=== PATIENT | female | born 1935 | race Caucasian/White ===

== ENCOUNTER 2017-03-07 19:57 | Inpatient (IN) | payer OTHER, MEDICAID ==
[~2017-03-07] VITALS: Ht 167.6 cm; Wt 74.4 kg
[~2017-03-07 19:57] MED LIST: ASPIRIN ADULT L81 M1 PO; BENEFIBER1 CTB PO; DIGITEK0.125 MG PO; FOSAMAX70 MG PO; FUROSEMIDE40 MG PO; KLOR-CON 88 MEQ PO; LIPITOR80 MG PO; METFORMIN500 MG PO; METOPROLOL TART25 MG PO; MULTIVITAMIN1 TA1 PO; OYSCO PO; RANITIDINE150 M1 PO; STOOL SOFTENER250 MG PO; SYNTHROID PO; VASOTEC2.5 M1 PO; XARELTO15 MG PO; [UNRECOGNIZED DRUG - OTHER] PO
[2017-03-07 20:17] VITALS: BP 155/81
--- NOTE | 2017-03-07 23:16 | NUR ---
PT TAKEN TO BED 8
--- NOTE | 2017-03-07 23:20 | NUR ---
BIB BY HER CAREGIVER WITH COMPLAINT OF HIGH BP, STARTED TODAY IN THE AFTERNOON. DENIES PAIN AT THIS TIME. ERMD AWARE
--- NOTE | 2017-03-07 23:27 | NUR ---
Dr. Wheeler evaluating patient at bedside.
--- NOTE | 2017-03-07 23:39 | NUR ---
PT TAKEN TO CT
--- NOTE | 2017-03-08 00:02 | NUR ---
PT RETURN TO BED 8
[2017-03-08] MEDS ORDERED: PIPERACILLIN/TAZOBACTAM 3.375 GM in DEXTROSE 5% 50 ML IV ONE (00:50)
[2017-03-08] MEDS ORDERED: VANCOMYCIN 1,000 MG in DEXTROSE 5% 250 ML IV ONE (00:50)
[2017-03-08] MEDS ORDERED: NACL 0.9% 1,000 ML IV ONE (00:50)
--- NOTE | 2017-03-08 00:50 | NUR ---
PT WENT TO THE RESTROOM ASSISTED WITH HER CAREGIVER.
[2017-03-08] MEDS ORDERED: PIPERACILLIN/TAZOBACTAM 3.375 GM VIAL IV ONE (01:13)
[2017-03-08] MEDS ORDERED: VANCOMYCIN 1,000 MG VIAL ONE (01:14)
--- NOTE | 2017-03-08 01:15 | NUR ---
PT BACK TO BED FROM RESTROOM WITH HER CAREGIVER.
--- NOTE | 2017-03-08 02:04 | NUR ---
Note saeed in EDM - 03/08/17 at 0302 by SAÚL # 14 FR Urinary catheter inserted utilizing sterile technique. Immediate return of 60 ml CLOUDY urine noted. Urine sample collected and sent to lab. Pt tolerated procedure .
[2017-03-08] MEDS ORDERED: ASPIRIN 81 MG TAB.CHEW PO ONE (02:40)
--- NOTE | 2017-03-08 02:54 | NUR ---
CALLING TELE UNIT TO GIVE REPORT. NURSE WILL CALL BACK.
--- NOTE | 2017-03-08 02:55 | NUR ---
Patient will be admitted to care of DR. JACOBSEN. Admited to TELE. Will go to room 119B. Belongings list completed.
[2017-03-08] MEDS ORDERED: KLOR-CON M1010 MEQ PO (03:10)
[2017-03-08] MEDS ORDERED: EAR WAX DROPS 115 ML OT (03:10)
--- NOTE | 2017-03-08 03:17 | NUR ---
CALLED TELE AGAIN TO GIVE REPORT. ENDER RENTERIA SAID NURSE WILL CALL BACK.
[2017-03-08] MEDS ORDERED: ACETAMINOPHEN325 M2 PO (03:18)
--- NOTE | 2017-03-08 03:19 | NUR ---
# 16 FR Solitario catheter with utilizing sterile technique. Immediate return of 100 ml CLOUDY urine noted. Bedside drainage bag placed below level of bladder. Urine sample collected and sent to lab. Pt tolerated procedure WELL.
[2017-03-08] MEDS ORDERED: GOOD NEIGHBOR P10 M1 RC (03:20)
[2017-03-08] MEDS ORDERED: NEIGHBOR RC (03:21)
[2017-03-08] MEDS ORDERED: LORazepam 2 MG/ML VIAL IVP PRN (03:30)
[2017-03-08] MEDS ORDERED: HYDROcodone/APAP 5/325 MG 1 TAB TAB PO PRN (03:30)
[2017-03-08] MEDS ORDERED: MORPHINE SULFATE 2 MG/ML SYR IVP PRN (03:30)
[2017-03-08] MEDS ORDERED: ONDANSETRON 4 MG/2 ML VIAL IVP PRN (03:30)
--- NOTE | 2017-03-08 03:30 | NUR ---
REPORT GIVEN TO DEANNE CARRION. TRANSFERRED TO FLOOR, VIA GURNEY, ON GUARDED CONDITION ACCOMPANIED BY 2 RNS.
[2017-03-08 03:35] VITALS: BP 141/64
--- NOTE | 2017-03-08 03:35 | NUR ---
RECEIVED REPORT FROM ED RN FOR CONTINUITY OF CARE. 81 Y.O. FEMALE ADMITTED TO TELE UNIT. DISCUSSED PLAN OF CARE WITH PATIENTS CAREGIVER AT BEDSIDE. SHIFT ASSESSMENT DONE, VS TAKEN, STABLE. NO S/S OF RESPIRATORY DISTRESS NOTED ON ROOM AIR. NO S/S OF PAIN NOTED. PATIENT IS ASLEEP, UNABLE TO VERBALIZE UNDERSTANDING AT THIS TIME. IV TO RT AC PATENT AND INFUSING FLUIDS WELL. SKIN INTACT. SAFETY/ FALL PRECAUTIONS ENFORCED. CALL LIGHT WITHIN REACH. WILL CONTINUE TO MONITOR.
[2017-03-08] MEDS ORDERED: NITROGLYCERIN 0.4 MG TAB SL PRN (03:40)
[2017-03-08] MEDS: NACL 0.9% 1,000 ML IV SCH ×2 (04:13→14:14)
--- NOTE | 2017-03-08 05:30 | NUR ---
PT IS SLEEPING. NO S/S OF DISTRESS OR DISCOMFORT NOTED. SPOKE TO REGARDING ORDER FOR BLOOD SUGAR MONITORING AND INSULIN PER SLIDING SCALE. WILL FOLLOW OUT ORDERS GIVEN. WILL CONTINUE TO MONITOR.
--- NOTE | 2017-03-08 06:20 | NUR ---
PT IS SLEEPING. NO S/S OF DISTRESS NOTED. BLOOD SUGAR TAKEN, 130. SCDS APPLIED. WILL CONTINUE TO MONITOR.
[2017-03-08] MEDS ORDERED: hePARIN / DEXT 5% PREMIX 250 ML IV SCH ×2 (06:30→09:10)
[2017-03-08] MEDS ORDERED: HEPARIN PER PHARMACY MC PRN (06:30)
--- NOTE | 2017-03-08 07:27 | NUR ---
ENDORSED PATIENT TO DAY RN FOR CONTINUITY OF CARE, PATIENT IS IN STABLE CONDITION.
--- NOTE | 2017-03-08 07:28 | NUR ---
RECEIVED REPORT FROM THE SERVICE DIRECTOR NURSE AT BEDSIDE FOR CONTINUITY OF CARE. PT IS SOUND ASLEEP. NOTED THE R AC 20G NS AT 30ML /HR. NO SIGNS OF DISTRESS. WILL BE BE BACK TO ASSESS PT.
[2017-03-08] MEDS ORDERED: BISACODYL 10 MG SUPP RC PRN (07:30)
[2017-03-08] MEDS ORDERED: BLOOD GLUCOSE MONITORING 1 DEV DEV FS SCH (07:30)
[2017-03-08] MEDS ORDERED: DEXTROSE 50% 50 ML SYR IVP PRN (07:40)
[2017-03-08] MEDS ORDERED: INSULIN LISPRO SLIDING SCALE 100 UNITS/ML VIAL SUBQ PRN (07:40)
[2017-03-08 08:00] VITALS: BP 122/63
[2017-03-08] MEDS ORDERED: ACETAMINOPHEN 325 MG TAB PO PRN (08:00)
--- NOTE | 2017-03-08 08:00 | NUR ---
PATIENT HAS BEEN SCREENED AND CATEGORIZED MODERATE NUTRITION RISK. PATIENT WILL BE SEEN WITHIN 3-5 DAYS OF ADMISSION. 03/10/17-03/12/[address]
--- NOTE | 2017-03-08 08:20 | NUR ---
HAD TO WAKE UP PT TO DO V/S. PT WAS COOPERATIVE. NOTED THE IV, PATENT, DRY AND INTACT. PT HAS A VICK CATH. 50ML OF CLEAR, YELLOW URINE IN BAG. DENIES PAIN. NO COMPLAINTS. JUST WANTS TO GO BACK TO BED. WILL CONTINUE TO MONITOR PT.
[2017-03-08] MEDS ORDERED: DIGOXIN PO SCH (09:00)
[2017-03-08] MEDS ORDERED: SODIUM PHOSPHATE 118 ML ENEM RC PRN (09:00)
[2017-03-08] MEDS ORDERED: CARBAMIDE PEROXIDE 6.5% OT 15 ML BTL OT SCH (09:00)
[2017-03-08] MEDS ORDERED: NON-FORMULARY ITEM (Levothyroxine Sodium (Synthroid) 1 TAB) PO SCH (09:00)
[2017-03-08] MEDS ORDERED: RANITIDINE HCL PO SCH (09:00)
[2017-03-08] MEDS ORDERED: CALCIUM PO SCH (09:00)
[2017-03-08] MEDS ORDERED: METOPROLOL 25 MG TAB PO SCH (09:00)
[2017-03-08] MEDS ORDERED: LISINOPRIL 10 MG TAB PO SCH (09:00)
[2017-03-08] MEDS ORDERED: CHOLECALCIFEROL PO SCH (09:00)
[2017-03-08] MEDS ORDERED: WHEAT DEXTRIN PO SCH (09:00)
[2017-03-08] MEDS ORDERED: RIVAROXABAN 15 MG TAB PO SCH (09:00)
--- NOTE | 2017-03-08 09:01 | NUR ---
RADIO TALK SHOW HOST IS HERE TO DO THE DOPPLER. WILL WAIT TO GIVE MEDS.
[2017-03-08] MEDS: PSYLLIUM 12.2 GM/PKT PO SCH (09:17)
[2017-03-08] MEDS: ENALAPRIL 2.5 MG TAB PO SCH (09:17)
[2017-03-08] MEDS: metFORMIN 500 MG TAB PO SCH ×2 (09:18→17:07)
[2017-03-08] MEDS: CALCIUM CARB/VIT-D 500 MG/200 IU 1 TAB PO SCH ×2 (09:18→21:18)
[2017-03-08] MEDS: FAMOTIDINE 20 MG TAB PO SCH (09:19)
[2017-03-08] MEDS: MULTIVITAMIN 1 TAB PO SCH (09:19)
[2017-03-08] MEDS: FUROSEMIDE 40 MG TAB PO SCH ×2 (09:19→17:06)
[2017-03-08] MEDS: DIGOXIN 0.125 MG TAB PO SCH (09:20)
[2017-03-08] MEDS: DOCUSATE SODIUM 100 MG GELCAP PO SCH ×2 (09:20→21:18)
[2017-03-08] MEDS ORDERED: ALBUTEROL SULFATE/IPRATROPIU 3 ML SOL IH PRN (09:35)
[2017-03-08] MEDS ORDERED: POTASSIUM CHLORIDE 10 MEQ TABER PO SCH (09:37)
[2017-03-08] MEDS ORDERED: MAG SULF 2000 MG/WATER PREMIX 100 ML IV SCH (09:40)
--- NOTE | 2017-03-08 10:30 | NUR ---
JOSE STARTED ANOTHER IV ON TH R HAND 22G FOR THE HEPARIN DRIP. PT TOLERATED WELL. ADMINISTERED IV PUSH 4400U AND STARTED THE CONTINUOUS DRIP AT 8.9ML/HR. PT IS TOLERATING WELL. WILL CONTINUE TO MONITOR PT.
--- NOTE | 2017-03-08 11:19 | NUR ---
SURGICAL TRAINING SPECIALIST IS HERE FOR THE ECHO. PT IS TOLERATING WELL.
[2017-03-08] MEDS: BLOOD GLUCOSE MONITORING 1 DEV DEV FS SCH ×3 (11:48→21:20)
[2017-03-08] MEDS: INSULIN LISPRO SLIDING SCALE 100 UNITS/ML VIAL SUBQ PRN ×3 (11:50→21:21)
--- NOTE | 2017-03-08 12:08 | NUR ---
RADIOLOGIST STILL IN ROOM. NEED TO DO A BUBBLE STUDY. WAITING FOR JOSE, CHARGE NURSE TO ASSIST. WILL CONTINUE TO MONITOR PT.
[2017-03-08 13:02] VITALS: BP 110/50
[2017-03-08] MEDS: PIPER/TAZO 3.375GM/D5W PREMIX 50 ML IV SCH ×2 (13:05→21:19)
--- NOTE | 2017-03-08 13:28 | NUR ---
PT IS NOW SITTING UP IN BED AND COLORING. THE FACILITY DIRECTOR IS AT BEDSIDE. NO SIGNS OF DISTRESS. WILL CONTINUE TO MONITOR PT.
--- NOTE | 2017-03-08 15:17 | NUR ---
PT IS SLEEPING. INSOLE RASPER AT BEDSIDE. NO SIGNS OF DISTRESS. DR. GILLILAND HAD D/C THE HEPARIN. DISCONTINUED. WILL CONTINUE TO MONITOR PT.
[2017-03-08 16:00] VITALS: BP 104/71
[2017-03-08] MEDS: CARVEDILOL 3.125 MG TAB PO SCH (17:06)
--- NOTE | 2017-03-08 17:30 | NUR ---
DECORATING INSPECTOR HERE. DOING HER NAILS. NO SIGNS OF DISTRESS. WILL CONTINUE TO MONITOR PT.
--- NOTE | 2017-03-08 19:19 | NUR ---
ENDORSED PT TO THE MUSHROOM CULTIVATOR NURSE AT BEDSIDE FOR CONTINUITY OF CARE. PT IS IN STABLE CONDITION.
--- NOTE | 2017-03-08 19:30 | NUR ---
RECEIVED FROM AM RN IN BED AWAKE AND ALERT. VERBALIZES SIMPLE NEEDS. NO SOB. DENIES PAIN AT THIS TIME. BED ALARM ON. CALL LIGHT WITH IN REACH. HX. DEMENTIA. DX. OF AMS, CYSTITIS AND ELEVATED TROPONIN. CALL LIGHT WITH IN REACH. IVF SITES PATENT AND NO INFILTRATION NOTED. NEEDS WILL BE ANTICIPATED AND WILL BE MET. CARE PLANS FOR THE NIGHT DISCUSSED WITH HER.
[2017-03-08 20:00] VITALS: BP 111/68
[2017-03-08] MEDS: ATORVASTATIN 20 MG TAB PO SCH (21:18)
--- NOTE | 2017-03-08 23:04 | NUR ---
SLEEPING AT THIS TIME. BED ALARM ON . TELEMETRY MONITORING.
[2017-03-09 00:53] VITALS: BP 113/73
[2017-03-09] MEDS: NACL 0.9% 1,000 ML IV SCH ×2 (01:43→03:29)
--- NOTE | 2017-03-09 02:00 | NUR ---
SLEEPING. NO RESTLESSNESS. WAKES UP EASILY WHEN TOUCHED. AFEBRILE. NEEDS WILL BE ANTICIPATED AND WILL BE MET. HX. DEMENTIA.
[2017-03-09 04:00] VITALS: BP 115/68
--- NOTE | 2017-03-09 04:00 | NUR ---
PT. TURNED TO SIDES BY CNAS . KEPT CLEAN AND DRY. NO RESTLESSNESS. NO SOB. AFEBRILE. TELEMETRY MONITORING.
[2017-03-09] MEDS: PIPER/TAZO 3.375GM/D5W PREMIX 50 ML IV SCH ×3 (05:26→21:32)
[2017-03-09] MEDS: LEVOTHYROXINE 0.112 MG, LEVOTHYROXINE 0.025 MG PO SCH (05:29)
[2017-03-09] MEDS: BLOOD GLUCOSE MONITORING 1 DEV DEV FS SCH ×4 (05:52→21:34)
--- NOTE | 2017-03-09 06:00 | NUR ---
SLEEPING WELL THIS SHIFT. NEEDS ANTICIPATED AND MET. WAKES UP WHEN CALLED BY NAME OR TOUCHED. ABLE TO VERBALIZE SIMPLE NEEDS. TELEMETRY MONITORING.
--- NOTE | 2017-03-09 07:16 | NUR ---
ENDORSED TO THE NEXT RN FOR CONTINUITY OF CARE. SLEEPING AND CAN EASILY BE WAKENED UP BY TOUCH. TELEMETRY MONITORING. VERBALIZES SIMPLE NEEDS.
--- NOTE | 2017-03-09 07:30 | NUR ---
RECEIVED REPORT FROM NIGHT NURSE. PT AOX1 TO NAME, FORGETFUL, ABLE TO FOLLOW SIMPLE COMMANDS. PT RESTING IN BED, NO CP, SOB OR S/S OF ACUTE DISTRESS. DUMPSTER OPERATOR IN PLACE. VICK CATH IN PLACE, DRAINING CLEAR YELLOW URINE. IV SITE AYMPTOMATIC, PATENT AND INTACT. IVF INFUSING WELL. DISCUSSED AND REVIEWED PLAN OF CARE, PT VERBALIZES UNDERSTANDING BUT WILL CONTINUE TO REINFORCE TEACHING. SAFETY MEASURES ENSURED. CALL LIGHT WITHIN REACH. WILL CONTINUE TO MONITOR.
[2017-03-09 07:53] VITALS: BP 120/65
[2017-03-09] MEDS: metFORMIN 500 MG TAB PO SCH ×2 (08:58→16:49)
[2017-03-09] MEDS: CARVEDILOL 3.125 MG TAB PO SCH ×2 (08:58→16:49)
[2017-03-09] MEDS: FUROSEMIDE 40 MG TAB PO SCH ×2 (08:58→16:49)
[2017-03-09] MEDS: DOCUSATE SODIUM 100 MG GELCAP PO SCH ×2 (08:59→21:32)
[2017-03-09] MEDS: MULTIVITAMIN 1 TAB PO SCH (08:59)
[2017-03-09] MEDS: FAMOTIDINE 20 MG TAB PO SCH (09:00)
[2017-03-09] MEDS: CALCIUM CARB/VIT-D 500 MG/200 IU 1 TAB PO SCH ×2 (09:00→21:33)
[2017-03-09] MEDS: PSYLLIUM 12.2 GM/PKT PO SCH (09:00)
[2017-03-09] MEDS: ENALAPRIL 2.5 MG TAB PO SCH (09:00)
[2017-03-09] MEDS ORDERED: CARBAMIDE PEROXIDE 6.5% OT 15 ML BTL BOTH EARS SCH (09:00)
[2017-03-09] MEDS: DIGOXIN 0.125 MG TAB PO SCH (09:04)
[2017-03-09] MEDS: RIVAROXABAN 15 MG TAB PO SCH (09:08)
--- NOTE | 2017-03-09 09:10 | NUR ---
PHYSICAL THERAPY IN TO AMBULATE PT WITH WALKER AND 2 PERSON ASSIST. PT TOLERATED WELL. ADMINISTERED MEDICATIONS WITH EDUCATION. PT VERBALIZES UNDERSTANDING. PT TOLERATED WELL. SAFETY MEASURES ENSURED. WILL CONTINUE TO MONITOR.
[2017-03-09] MEDS ORDERED: POTASSIUM CHLORIDE 10 MEQ TABER PO SCH (09:16)
[2017-03-09 12:00] VITALS: BP 98/64
--- NOTE | 2017-03-09 12:23 | NUR ---
PT RESTING IN BED, CONDITION STABLE. ALL NEEDS MET. SAFETY MEASURES IN PLACE. WILL CONTINUE TO MONITOR.
--- NOTE | 2017-03-09 13:10 | NUR ---
PT TOLERATING MECH SOFT DIET WELL WITH ASSISTANCE OF DRUG SAFETY ASSISTANT. IV ZOSYN INFUSING WELL AT THIS TIME. WILL CONTINUE TO MONITOR.
[2017-03-09 16:00] VITALS: BP 109/64
--- NOTE | 2017-03-09 16:53 | NUR ---
HELD COREG DUE TO DECREASED BLOOD PRESSURE. REMAINING DUE MEDICATIONS ADMINISTERED WITH EDUCATION. PT VERBALIZES UNDERSTANDING AND WILL CONTINUE TO REINFORCED TEACHING. PT TOLERATED MEDS WELL. NO S/S OF ACUTE DISTRESS. ALL NEEDS MET. SAFETY MEASURES ENSURED. WILL CONTINUE TO MONITOR.
--- NOTE | 2017-03-09 19:30 | NUR ---
CONDITION STABLE, ENDORSED PLAN OF CARE TO SHEETMETAL WORKER RN.
[2017-03-09 20:00] VITALS: BP 129/57
--- NOTE | 2017-03-09 20:00 | NUR ---
SEEN PT AWAKE, ALERT AND ORIENTED TO NAME ONLY. PT ABLE TO FOLLOW SIMPLE COMMANDS. INITIAL ASSESSMENT DONE. VITAL SIGNS CHECKED. SAFETY REINFORCED. WILL CONTINUE TO MONITOR.
--- NOTE | 2017-03-09 21:30 | NUR ---
DUE MEDS GIVEN ORDERED. TEACHINGS PROVIDED BUT PT UNABLE TO COMPREHEND. PT ABLE TO SWALLOW PILLS W/ APPLE SAUCE. INSULIN COVERAGE GIVEN PER SLIDING SCALE. PT REPOSITIONED FOR COMFORT.
[2017-03-09] MEDS: CARBAMIDE PEROXIDE 6.5% OT 15 ML BTL BOTH EARS SCH (21:32)
[2017-03-09] MEDS: ATORVASTATIN 20 MG TAB PO SCH (21:33)
[2017-03-09] MEDS: INSULIN LISPRO SLIDING SCALE 100 UNITS/ML VIAL SUBQ PRN (21:35)
--- NOTE | 2017-03-09 21:50 | NUR ---
PT PULLED OUT HER RT HAND IV ACCESS. TUBING SWITCHED TO RT AC G20 AND WRAPPED W/ KERLIX. WILL CONTINUE TO MONITOR.
[2017-03-10] VITALS: BP 108/67
--- NOTE | 2017-03-10 | NUR ---
SEEN PT ASLEEP. VITAL SIGNS CHECKED AND WNL. NO DISCOMFORT OBSERVED. PT REPOSITIONED FOR COMFORT.
[2017-03-10 04:00] VITALS: BP 124/74
--- NOTE | 2017-03-10 04:00 | NUR ---
SEEN PT AWAKE. VITAL SIGNS CHECKED. PT DENIES ANY DISCOMFORT. PT REPOSITIONED. WILL CONTINUE TO MONITOR.
[2017-03-10] MEDS: NACL 0.9% 1,000 ML IV SCH (04:30)
[2017-03-10] MEDS: PIPER/TAZO 3.375GM/D5W PREMIX 50 ML IV SCH ×3 (04:30→20:48)
--- NOTE | 2017-03-10 06:10 | NUR ---
BLOOD SUGAR CHECKED:126. NO COVERAGE NEEDED. PT REPOSITIONED FOR COMFORT. SAFETY REINFORCED.
[2017-03-10] MEDS: LEVOTHYROXINE 0.112 MG, LEVOTHYROXINE 0.025 MG PO SCH (06:20)
[2017-03-10] MEDS: BLOOD GLUCOSE MONITORING 1 DEV DEV FS SCH ×4 (06:21→20:48)
--- NOTE | 2017-03-10 07:08 | NUR ---
PT REPORT GIVEN TO DAYSHIFT NURSE.
--- NOTE | 2017-03-10 07:09 | NUR ---
RECEIVED PT AWAKE SITTING ON BED AOX1, WITH NO S/S OF RESPIRATORY DISTRESS, WITH IV ACCESS ON RIGHT AC 20G PATENT AND INTACT. SKIN IS INTACT. WITH VICK CATHETER DRAINING YELLOW URINE TO URINE BAG BY GRAVITY, SAFETY PRECAUTIONS ENFORCED. DISCUSSED PLAN OF CARE, REINFORCEMENT NEEDED. CALL LIGHT WITHIN REACH, WILL CONTINUE TO MONITOR
[2017-03-10] MEDS: PSYLLIUM 12.2 GM/PKT PO SCH (08:24)
[2017-03-10] MEDS: DOCUSATE SODIUM 100 MG GELCAP PO SCH ×2 (08:25→20:48)
[2017-03-10] MEDS: CARVEDILOL 3.125 MG TAB PO SCH ×2 (08:26→17:00)
[2017-03-10] MEDS: FAMOTIDINE 20 MG TAB PO SCH (08:26)
[2017-03-10] MEDS: metFORMIN 500 MG TAB PO SCH ×2 (08:26→17:05)
[2017-03-10] MEDS: FUROSEMIDE 40 MG TAB PO SCH ×2 (08:26→17:05)
[2017-03-10] MEDS: DIGOXIN 0.125 MG TAB PO SCH (08:26)
[2017-03-10] MEDS: MULTIVITAMIN 1 TAB PO SCH (08:26)
[2017-03-10] MEDS: ENALAPRIL 2.5 MG TAB PO SCH (08:27)
[2017-03-10] MEDS: CALCIUM CARB/VIT-D 500 MG/200 IU 1 TAB PO SCH ×2 (08:27→20:48)
[2017-03-10] MEDS: RIVAROXABAN 15 MG TAB PO SCH (08:40)
--- NOTE | 2017-03-10 08:40 | NUR ---
DUE MEDS GIVEN, PT TOLERATED WELL. WITH CAREGIVER AT BEDSIDE. WILL CONTINUE TO MONITOR
[2017-03-10] MEDS: CARBAMIDE PEROXIDE 6.5% OT 15 ML BTL BOTH EARS SCH ×2 (08:41→20:47)
--- NOTE | 2017-03-10 09:29 | NUR ---
PATIENT ABLE TO AMBULATE ALONG THE HALLWAY WITH PHYSICAL THERAPY. TOLERATED WELL.
[2017-03-10 09:31] VITALS: BP 129/71
--- NOTE | 2017-03-10 11:47 | NUR ---
PT ASLEEP, NO S/S OF DISTRESS. WITH CUSTOMER DATA TECHNICIAN AT BEDSIDE. CALL LIGHT WITHIN REACH, WILL CONTINUE TO MONITOR
[2017-03-10 12:00] VITALS: BP 112/68
[2017-03-10] MEDS: INSULIN LISPRO SLIDING SCALE 100 UNITS/ML VIAL SUBQ PRN ×2 (12:03→17:09)
--- NOTE | 2017-03-10 12:03 | NUR ---
DUE MEDS GIVEN, PT TOLERATED WELL. PT STILL ASLEEP BUT EASILY AROUSABLE. WOOL PRESSER STILL AT BEDSIDE. WILL CONTINUE TO MONITOR.
--- NOTE | 2017-03-10 14:15 | NUR ---
PT AWAKE LYING ON BED, NO S/S OF DISTRESS. SAFETY PRECAUTIONS ENFORCED. WILL CONTINUE TO MONITOR.
[2017-03-10 16:00] VITALS: BP 108/55
--- NOTE | 2017-03-10 17:06 | NUR ---
DUE MEDS GIVEN, PT TOLERATED WELL. NO S/S OF DISTRESS, WILL CONTINUE TO MONITOR.
--- NOTE | 2017-03-10 18:05 | NUR ---
ASSISTED PT WHILE EATING DINNER, PT HAS GOOD APPETITE.
--- NOTE | 2017-03-10 19:26 | NUR ---
ENDORSE PT TO [place], RN IN STABLE CONDITION FOR CONTINUITY OF CARE
--- NOTE | 2017-03-10 19:35 | NUR ---
RECEIVED PT IN STABLE CONDITION FROM AM NURSE. AWAKE,ALERT ,ORIENTED X1. WITH CONFUSION. BEDREST. ON TELE MONITOR. NO ACUTE DISTRESS NOTED. BEDREST. HAS BLE SCD MACHINE ON. IV ACCESS ON THE RT AC #22, CLEAR AND PATENT. HAS VICK CATH TO GRAVITY, DRAINING WELL. BED ON LOW POSITION, SIDE RAILS UP X2. BED ALARM ON. CALL LIGHT PLACED WITHIN EASY REACH. WILL CONTINUE TO MONITOR.
[2017-03-10 19:45] VITALS: BP 129/74
[2017-03-10] MEDS: ATORVASTATIN 20 MG TAB PO SCH (20:48)
--- NOTE | 2017-03-10 20:48 | NUR ---
BLOOD SUGAR WAS CHECKED REUSLT 140. NO INSULIN COVERAGE NEEDED. PROVIDED SOME SNACK. WILL CONTINUE TO MONITOR.
--- NOTE | 2017-03-10 21:00 | NUR ---
PT TOOK ALL PO MEDS FOR THE NIGHT. TOLERATED WELL.
--- NOTE | 2017-03-10 22:30 | NUR ---
REPOSITIONED FOR COMFORT. SIDE RAILS UP X2. CALL LIGHT PLACED WITHIN EASY REACH.
[2017-03-11] VITALS: BP 147/69
--- NOTE | 2017-03-11 00:30 | NUR ---
REPOSITIONED FOR COMFORT. NO S/S OF ANY PAIN NOTED.
--- NOTE | 2017-03-11 02:00 | NUR ---
SLEEPING AT THIS TIME. NO S/S OF ANY DISTRESS NOTED. WILL CONTINUE TO MONITOR.
[2017-03-11] MEDS: NACL 0.9% 1,000 ML IV SCH (03:29)
[2017-03-11 04:10] VITALS: BP 139/81
--- NOTE | 2017-03-11 04:10 | NUR ---
REPOSITIONED WELL FOR COMFORT IN BED. NO C/O ANY PAIN NOTED.
[2017-03-11] MEDS: PIPER/TAZO 3.375GM/D5W PREMIX 50 ML IV SCH ×2 (05:24→12:14)
[2017-03-11] MEDS: LEVOTHYROXINE 0.112 MG, LEVOTHYROXINE 0.025 MG PO SCH (06:29)
[2017-03-11] MEDS: BLOOD GLUCOSE MONITORING 1 DEV DEV FS SCH ×2 (06:29→11:53)
--- NOTE | 2017-03-11 06:29 | NUR ---
BLOOD SUGAR WAS CHECKED RESULT 147. NO INSULIN COVERAGE NEEDED.
--- NOTE | 2017-03-11 07:10 | NUR ---
RECEIVED REPORT FROM NIGHT NURSE. PT IS AWAKE AOX1 AND SHOWS NO S/S OF DISTRESS. PT IS ON ROOM AIR. PT HAS VICK CATHETER WITH YELLOW URINE. IV IS ON R AC #22 PATENT AND INTACT. SKIN IS INTACT. PT DENIES PAIN. PATIENT BED IS LOWERED AND FLAT WITH CALL LIGHT WITHIN REACH. WILL CONTINUE TO MONITOR.
--- NOTE | 2017-03-11 07:15 | NUR ---
ENDORSED PT IN STABLE CONDITION TO AM NURSE.
[2017-03-11 08:00] VITALS: BP 133/84
[2017-03-11] MEDS: FAMOTIDINE 20 MG TAB PO SCH (08:13)
[2017-03-11] MEDS: CARVEDILOL 3.125 MG TAB PO SCH (08:13)
[2017-03-11] MEDS: DIGOXIN 0.125 MG TAB PO SCH (08:13)
[2017-03-11] MEDS: DOCUSATE SODIUM 100 MG GELCAP PO SCH (08:13)
[2017-03-11] MEDS: CALCIUM CARB/VIT-D 500 MG/200 IU 1 TAB PO SCH (08:13)
[2017-03-11] MEDS: MULTIVITAMIN 1 TAB PO SCH (08:14)
[2017-03-11] MEDS: metFORMIN 500 MG TAB PO SCH (08:14)
[2017-03-11] MEDS: ENALAPRIL 2.5 MG TAB PO SCH (08:14)
[2017-03-11] MEDS: FUROSEMIDE 40 MG TAB PO SCH (08:14)
[2017-03-11] MEDS: PSYLLIUM 12.2 GM/PKT PO SCH (08:15)
[2017-03-11] MEDS: RIVAROXABAN 15 MG TAB PO SCH (08:15)
--- NOTE | 2017-03-11 08:15 | NUR ---
ADMINISTERED SCHEDULED MEDICATIONS. PT TOLERATED WELL. PT'S BED IS HIGH FOWLERS AND EATING WITH ASSISTANCE. PT SHOWS NO S/S OF DISTRESS. WILL CONTINUE TO MONITOR.
[2017-03-11] MEDS: CARBAMIDE PEROXIDE 6.5% OT 15 ML BTL BOTH EARS SCH (08:17)
[2017-03-11] MEDS ORDERED: MAG SULF 2000 MG/WATER PREMIX 50 ML IV SCH (09:00)
--- NOTE | 2017-03-11 11:54 | NUR ---
CM NOTE: SPOKE TO CIPRIANO VERA, CHILD PROTECTIVE INVESTIGATOR OF [facility]. SHE STATED THAT PATIENT USED WALKER AND WHEELCHAIR 2 YEARS AGO WHEN PT HAD A STROKE. SHE ALSO STATED THAT THEY ASSIST PT WITH ADLS BUT DOESN'T USE WALKER AND WHEELCHAIR. CIPRIANO REPORTED THAT THEY STILL HAVE THE WALKER AND WHEELCHAIR IF THE PT NEEDS IT.
[2017-03-11 12:00] VITALS: BP 91/41
--- NOTE | 2017-03-11 12:00 | NUR ---
PT SEEN BY PHYSICAL THERAPIST. PT AMB WITH WALKER. PT TOLERATING WELL.
[2017-03-11] MEDS: INSULIN LISPRO SLIDING SCALE 100 UNITS/ML VIAL SUBQ PRN (12:16)
[2017-03-11] MEDS ORDERED: FLORASTOR250 MG PO (13:25)
[2017-03-11] MEDS ORDERED: BACTRIM 400 MG-1 TAB PO (13:25)
[2017-03-11] MEDS ORDERED: CARVEDILOL3.125 MG PO (13:25)
--- NOTE | 2017-03-11 13:45 | NUR ---
PHYSICAL THERAPY CO-SIGN The Physical Therapy Progress Notes documented by Reimbursement Representative have been reviewed. Reviewed/Co-Signed by: Malika Puri, PT Documentation Done by: Dayna Olivas PTA I concur with the documentation of this MOBILE PARAMEDICAL EXAMINER. Plan: continue PT as per plan of care if patient remains in this hospital. Addendum: 03/11/17 at 1415 by Malika Puri PT Amended: Links added.
--- NOTE | 2017-03-11 14:22 | NUR ---
OK TO DC VICK CATH PER DR ADAIR
--- NOTE | 2017-03-11 14:22 | NUR ---
SPOKE WITH CIPRIANO VERA, PT'S CAREGIVER, AND INFORMED HER ABOUT THE PATIENT'S DISCHARGE ORDER. PATIENT TO BE PICKED UP
--- NOTE | 2017-03-11 15:45 | NUR ---
PT HAS BEEN DISCHARGED. PT'S CAREGIVER IN ROOM. CAREGIVER WAS GIVEN ALL PAPERWORK, DISCHARGE INSTRUCTIONS, GIVEN PRESCRIPTIONS AND ALL QUESTIONS WERE ANSWERED. ALL BELONGINGS AND PRESCRIPTIONS IN PATIENT'S POSSESSION. IV DISCONTINUED WITH CANNULA INTACT. WRISTBANDS AND TELE MONITOR REMOVED. PT WAS WHEELED OUT IN A WHEELCHAIR. PT HAD NO S/S OF DISTRESS. PATIENT IN STABLE CONDITION.
== END 2017-03-11 15:45 | DRG 682 ==
LOC: MED 19:57 → MTU 03-08 02:55
PROVIDERS: ADMIT Family Medicine; ATTEND Family Medicine
DX: N17.0 Acute kidney failure with tubular necrosis (principal); G93.41 Metabolic encephalopathy; D68.9 Coagulation defect, unspecified; Q21.1 Atrial septal defect; E83.42 Hypomagnesemia; E11.65 Type 2 diabetes mellitus with hyperglycemia; E78.5 Hyperlipidemia, unspecified; E03.9 Hypothyroidism, unspecified; F03.90 Unspecified dementia, unspecified severity, without behavioral disturbance, psychotic disturbance, mood disturbance, and anxiety; K21.9 Gastro-esophageal reflux disease without esophagitis; F79 Unspecified intellectual disabilities; E87.6 Hypokalemia; M81.0 Age-related osteoporosis without current pathological fracture; I48.2 Chronic atrial fibrillation; I11.0 Hypertensive heart disease with heart failure; I50.9 Heart failure, unspecified; N30.90 Cystitis, unspecified without hematuria; K80.20 Calculus of gallbladder without cholecystitis without obstruction; E11.51 Type 2 diabetes mellitus with diabetic peripheral angiopathy without gangrene; I27.2 Other secondary pulmonary hypertension; I07.1 Rheumatic tricuspid insufficiency; Z79.82 Long term (current) use of aspirin; Z79.01 Long term (current) use of anticoagulants; Z79.899 Other long term (current) drug therapy

== ENCOUNTER 2017-03-15 13:47 | Observation (INO) | payer OTHER, MEDICAID ==
[~2017-03-15] VITALS: Ht 170.2 cm; Wt 65.8 kg
[~2017-03-15 13:47] MED LIST changes: +ACET-1182 PO; +ALEN70TA PO; +ASPI81CT27 PO; -ASPIRIN ADULT L81 M1 PO; -BENEFIBER1 CTB PO; +CALC-1044 PO; +CARV3.122 PO; -DIGITEK0.125 MG PO; +DIGO0.1296 PO; -FOSAMAX70 MG PO; +FURO40TA9 PO; -FUROSEMIDE40 MG PO; -KLOR-CON 88 MEQ PO; +LEVO137T2 PO; +LIP80 PO; -LIPITOR80 MG PO; +METF500T64 PO; -METFORMIN500 MG PO; -METOPROLOL TART25 MG PO; +MULT-298 PO; -MULTIVITAMIN1 TA1 PO; +NA P RC; -OYSCO PO; +POTA10TA PO; +POTA8TER12 PO; +RANI150T8 PO; -RANITIDINE150 M1 PO; +RIVA15TA1 PO; +SACC250C4 PO; -STOOL SOFTENER250 MG PO; +SULF-58 PO; -SYNTHROID PO; +VAS2.5 PO; -VASOTEC2.5 M1 PO; -XARELTO15 MG PO; +[UNRECOGNIZED DRUG - CODE] PO; +[UNRECOGNIZED DRUG - CODE] PO; +[UNRECOGNIZED DRUG - CODE] RC; +[UNRECOGNIZED DRUG - OTHER] OT; -[UNRECOGNIZED DRUG - OTHER] PO
[2017-03-15 14:00] VITALS: BP 111/77
--- NOTE | 2017-03-15 16:12 | NUR ---
pt w/c assisted to bed 7
--- NOTE | 2017-03-15 16:14 | NUR ---
Dr. Kelly evaluating patient at bedside. Caregivers at bedside.
[2017-03-15] MEDS ORDERED: ONDANSETRON 4 MG/2 ML VIAL IVP ONE (16:15)
--- NOTE | 2017-03-15 16:15 | NUR ---
81/F bib caregivers for evaluation of generalized weakness and vomiting x1 this morning. Pt was w/c assisted to bed 7 and assisted into bed by caregivers. Per caregivers, patient was discharged on 03/11/17 from here for CHF. The caregivers state she was discharged with weakness but had x1 episode of vomiting. Pt has had no vomiting while in ED. Patient is awake and alert x1 to self. Caregivers also c/o swelling to legs and discoloration. There is no discoloration noted at this time. No edema noted. Patient placed in a gown, placed on cardiac care nurse, pulse oximetry and blood pressure monitoring. VSS. Afebrile. Caregivers at bedside.
--- NOTE | 2017-03-15 16:31 | NUR ---
X-Ray at bedside.
[2017-03-15 16:40] LABS: HEMATOCRIT 47.6 % (36-48); HEMOGLOBIN 15.1 g/dL (12.0-16.0); MEAN CORPUSCULAR HEMOGLOBIN 28 pg (27-31); MEAN CORPUSCULAR HGB CONC 32 g/dL (33-37); MEAN CORPUSCULAR VOLUME 90 fL (80-94); PLATELET COUNT (AUTO) 356 K/uL (140-450); RED BLOOD CELL COUNT(AUTO) 5.31 MIL/uL (4.20-5.40); RED CELL DISTRIBUTION WIDTH 15.4 % (11.6-13.7); WHITE BLOOD COUNT (AUTO) 10.5 K/uL (4.8-10.8)
[2017-03-15 16:58] LABS: ANION GAP 12.3 (8-16); CALCIUM 9.5 mg/dL (8.5-10.1); CARBON DIOXIDE 30.1 mmol/L (21-32); CHLORIDE 99 mmol/L (98-107); CREATININE 1.2 mg/dL (0.6-1.3); GLUCOSE 178 mg/dL (74-106); POTASSIUM 4.4 mmol/L (3.5-5.1); SODIUM SERUM 137 mmol/L (136-145); UREA NITROGEN, BLOOD 28 mg/dL (7-18)
[2017-03-15 17:03] LABS: ALANINE AMINOTRANSFERASE 47 U/L (12-78); ALBUMIN 3.4 g/dL (3.4-5.0); ALKALINE PHOSPHATASE 115 U/L (46-116); AMYLASE 75 U/L (25-115); ASPARTATE AMINOTRANSFERASE 29 U/L (15-37); LIPASE 212 U/L (73-393); TOTAL BILIRUBIN 0.6 mg/dL (0.0-1.0); TOTAL PROTEIN, SERUM 7.8 g/dL (6.4-8.2)
[2017-03-15 17:08] LABS: BAND % (MANUAL) 13 % (0-8); EOSINOPHILS % (MANUAL) 4 % (0-4); LYMPHOCYTES % (MANUAL) 3 % (20-46); MONOCYTES % (MANUAL) 4 % (5-12); NEUTROPHILS % (MANUAL) 76 (43-65)
[2017-03-15 17:09] LABS: PLATELET ESTIMATE ADEQUATE
[2017-03-15 17:14] LABS: INR 1.7 (0.8-1.2); PARTIAL THROMBOPLASTIN TIME 34.5 secs (22-35.6); PROTHROMBIN TIME 16.5 secs (10.8-13.4)
--- NOTE | 2017-03-15 17:19 | NUR ---
Patient appears to be resting comfortably in bed. Vital Signs within normal limits. Respirations even and unlabored.
[2017-03-15 17:26] LABS: LACTIC ACID 2.8 mmol/L (0.4-2.0)
[2017-03-15] MEDS ORDERED: VANCOMYCIN 1,000 MG in DEXTROSE 5% 250 ML IV ONE (17:30)
[2017-03-15] MEDS ORDERED: PIPERACILLIN/TAZOBACTAM 3.375 GM in DEXTROSE 5% 50 ML IV ONE (17:30)
[2017-03-15 17:35] LABS: APPEARANCE,URINE CLEAR (CLEAR); BILIRUBIN,URINE NEGATIVE (NEGATIVE); BLOOD, URINE NEGATIVE (NEGATIVE); COLOR,URINE YELLOW (YELLOW); LEUKOCYTE ESTERASE ,URINE NEGATIVE (NEGATIVE); NITRITE, URINE NEGATIVE (NEGATIVE); PH,URINE 5.5 (5.0-9.0); PROTEIN,URINE NEGATIVE (NEGATIVE); UGLUCOSE NEGATIVE (NEGATIVE); UROBILINOGEN,URINE 0.2 EU/dL (0.2 - 1)
--- NOTE | 2017-03-15 17:36 | NUR ---
Patient taken to bed to CT via gurney.
--- NOTE | 2017-03-15 17:36 | NUR ---
Caregivers left and will return later. All belongings placed in a bag and sent home with the caregivers.
[2017-03-15] MEDS ORDERED: PIPERACILLIN/TAZOBACTAM 3.375 GM VIAL IV ONE (17:40)
[2017-03-15] MEDS ORDERED: VANCOMYCIN 1,000 MG VIAL ONE (17:41)
[2017-03-15] MEDS ORDERED: NACL 0.9% 1,000 ML IV SCH ×2 (17:46→18:40)
[2017-03-15 17:48] LABS: BACTERIA,URINE FEW /HPF (None Seen); MUCUS,URINE 3+ /LPF (None Seen); RBC,URINE 0-3 /HPF (0-5); WBC,URINE 0-3 /HPF (0-5)
[2017-03-15] MEDS ORDERED: MORPHINE SULFATE 2 MG/ML SYR IVP PRN ×2 (17:50→18:40)
[2017-03-15] MEDS ORDERED: ONDANSETRON 4 MG/2 ML VIAL IVP PRN (17:50)
[2017-03-15] MEDS ORDERED: HYDROcodone/APAP 5/325 MG 1 TAB TAB PO PRN ×2 (17:50→18:40)
[2017-03-15] MEDS ORDERED: ACETAMINOPHEN 325 MG TAB PO PRN (17:50)
--- NOTE | 2017-03-15 17:50 | NUR ---
Pt returned from CT scan.
--- NOTE | 2017-03-15 18:06 | NUR ---
Patient will be admitted to care of Dr. Cheng. Admited to Tele oberservation. Will go to room 120-B. Belongings list completed. Report to Alexsandra ALICEA.
--- NOTE | 2017-03-15 18:15 | NUR ---
ZOSYN SENT TO TELE INFUSING AND VANCOMYCIN ALSO SENT WITH THE PATIENT AND ENDORSED TO MIRIAM RN TO ADMINISTER ONCE ZOSYN IS COMPLETED.
--- NOTE | 2017-03-15 18:30 | NUR ---
PT BROUGHT UP FROM ER VIA GURNEY, PT AWAKE ALERT, OX1 AT BASE LINE, RESP EVEN UNLABORED ON 2L O2 NC, COLOR WNL, MOVES ALL EXT X4, PIV TO LEFT AC 20G, ZOSYN INFUSING, SITE CLEAR, SKIN INTACT, PT PLACED ON DIRECTOR OF CATH LAB, VITALS FOLLOWS BP 87/58, HR 89, O2SAT 98% 2LNC, TEMP 98.2 ORALLY, WILL PAGE MD TO NOTIFY OF BP. MRSA SWAB DONE, WILL CONTINUE TO MONITOR
[2017-03-15] MEDS ORDERED: FUROSEMIDE 20 MG/2 ML VIAL IVP SCH (18:37)
[2017-03-15] MEDS ORDERED: LORazepam 2 MG/ML VIAL IVP PRN (18:40)
--- NOTE | 2017-03-15 18:57 | NUR ---
DR SMILEY CALLED BACK, NOTIFIED OF PT'S BP 87/58, MAP 66, NO NEW ORDERS AT THIS TIME, TO NOTIFY IF BP/MAP LOWERS. WILL CONTINUE TO MONITOR
--- NOTE | 2017-03-15 19:25 | NUR ---
ENDORSED PLAN OF CARE TO NIGHT RN. PT REMAINS IN STABLE CONDITION.
--- NOTE | 2017-03-15 19:26 | NUR ---
RECEIVED PT FROM RENNY ALICEA PT ALERT BUT HX MENTAL RETARDATION, SCHIZOPHRENIA, ON TELEMETRY CONTROLLED AFIB HR 82, IV ON LEFT AC INFUSING WELL PT REPOSITIONED NOT VOMITING AT THIS TIME INITIAL ASSESSMENT DONE
[2017-03-15 20:00] VITALS: BP 135/73
[2017-03-15] MEDS ORDERED: CALCIUM PO SCH (21:00)
[2017-03-15] MEDS ORDERED: RANITIDINE HCL PO SCH (21:00)
[2017-03-15] MEDS ORDERED: CHOLECALCIFEROL PO SCH (21:00)
[2017-03-15] MEDS ORDERED: ATORVASTATIN 80 MG TAB PO SCH (21:00)
[2017-03-15] MEDS ORDERED: PIPERACILLIN/TAZOBACTAM 3.375 GM in DEXTROSE 5% 50 ML IV SCH (21:00)
--- NOTE | 2017-03-15 21:30 | NUR ---
PT REPOSITIONED LINEN CHANGED PT INCONTINENT CONTROLLED AFIB ON TELEMETRY
[2017-03-15] MEDS: CALCIUM CARB/VIT-D 500 MG/200 IU 1 TAB PO SCH (21:47)
[2017-03-15] MEDS: CARVEDILOL 3.125 MG TAB PO SCH (21:47)
[2017-03-16] VITALS: BP 100/49
--- NOTE | 2017-03-16 | NUR ---
PT ON CONTROLLED AFIB ON 3 LTS VIA NC REPOSITIONED Q2H IV ON LEFT AC INFUSING WELL
[2017-03-16 01:27] LABS: CREATINE KINASE MB 0.4 ng/mL (0-3.6)
--- NOTE | 2017-03-16 02:00 | NUR ---
PT INCONTINENT LINEN CHANGED ON TELMETRY CONTROLLED AFILB NOT FEVER
[2017-03-16 04:00] VITALS: BP 95/48
[2017-03-16] MEDS: PIPER/TAZO 3.375GM/D5W PREMIX 50 ML IV SCH ×2 (04:56→15:06)
--- NOTE | 2017-03-16 05:11 | NUR ---
SPONGE BATH GIVEN LINEN CHANGED REPOSITIONED ON TELEMETRY CONTROLLED AFIB, PT INCONTINENT N NOT BM YET
[2017-03-16] MEDS ORDERED: LEVOTHYROXINE 0.112 MG, LEVOTHYROXINE 0.025 MG PO SCH ×2 (06:30)
--- NOTE | 2017-03-16 06:34 | NUR ---
PT MORE COOPERATIVE TO FOLLOW DR ORDERS , IV ON LEFT AC INFUSING WELL ON TELEMETRY CONTROLLED AFIB REPOSITIONED Q2H
--- NOTE | 2017-03-16 07:30 | NUR ---
REPORT RECIEVED FROM SCIENCE ANALYST NURSE, PT SLEEPING QUIETLY IN NAD, RESP EVEN UNLABORED ON ROOM AIR, IV TO L AC INFUSING WELL SITE CLEAR, NO IMMEDIATE NEEDS IDENTIFIED AT THIS TIME, CALL PEPE WITHIN REACH, SAFETY MEASURES MET, SIDE RAILS UP X2, BED LOCKED IN LOW POSITION, WILL CONTINUE TO MONITOR
[2017-03-16] MEDS ORDERED: FUROSEMIDE 40 MG/4 ML VIAL IVP SCH (07:40)
--- NOTE | 2017-03-16 07:58 | NUR ---
PATIENT HAS BEEN SCREENED AND CATEGORIZED HIGH NUTRITION RISK. PATIENT WILL BE SEEN WITHIN 1-2 DAYS OF ADMISSION. 03/16/17-03/17/[address]
[2017-03-16 08:00] VITALS: BP 95/57
[2017-03-16] MEDS ORDERED: NON-FORMULARY ITEM (Saccharomyces Boulardii* (Florastor*) 250 MG) PO SCH (08:00)
[2017-03-16] MEDS ORDERED: metFORMIN 500 MG TAB PO SCH (08:00)
[2017-03-16] MEDS ORDERED: LACTOBACILLUS RHAMNOSUS GG 1 EACH CAP PO SCH (08:00)
[2017-03-16 08:06] LABS: HEMATOCRIT 42.9 % (36-48); HEMOGLOBIN 13.8 g/dL (12.0-16.0); MEAN CORPUSCULAR HEMOGLOBIN 29 pg (27-31); MEAN CORPUSCULAR HGB CONC 32 g/dL (33-37); MEAN CORPUSCULAR VOLUME 90 fL (80-94); PLATELET COUNT (AUTO) 272 K/uL (140-450); RED BLOOD CELL COUNT(AUTO) 4.79 MIL/uL (4.20-5.40); RED CELL DISTRIBUTION WIDTH 15.5 % (11.6-13.7); WHITE BLOOD COUNT (AUTO) 5.5 K/uL (4.8-10.8)
[2017-03-16] MEDS: CALCIUM CARB/VIT-D 500 MG/200 IU 1 TAB PO SCH (08:10)
[2017-03-16] MEDS: CARVEDILOL 3.125 MG TAB PO SCH (08:11)
--- NOTE | 2017-03-16 08:22 | NUR ---
SCHEDULED LASIIX 20MG HELD PER DR ADAIR, 40MG LASIX IV GIVEN INSTEAD PER ORDER AT THIS TIME
[2017-03-16 09:00] LABS: PLATELET ESTIMATE ADEQUATE
[2017-03-16] MEDS ORDERED: DIGOXIN 0.125 MG TAB PO SCH (09:00)
[2017-03-16] MEDS ORDERED: NON-FORMULARY ITEM (Levothyroxine Sodium (Synthroid) 1 TAB) PO SCH (09:00)
[2017-03-16] MEDS ORDERED: RIVAROXABAN 15 MG TAB PO SCH (09:00)
[2017-03-16] MEDS ORDERED: FUROSEMIDE 20 MG/2 ML VIAL IVP SCH (09:00)
[2017-03-16] MEDS ORDERED: ASPIRIN 81 MG TAB.CHEW PO SCH ×2 (09:00)
[2017-03-16] MEDS ORDERED: MULTIVITAMIN 1 TAB PO SCH (09:00)
[2017-03-16] MEDS ORDERED: DOCUSATE SODIUM 100 MG GELCAP PO SCH (09:00)
[2017-03-16] MEDS ORDERED: FAMOTIDINE 20 MG TAB PO SCH (09:00)
[2017-03-16 09:01] LABS: ANION GAP 8.7 (8-16); CALCIUM 8.5 mg/dL (8.5-10.1); CARBON DIOXIDE 32.2 mmol/L (21-32); CHLORIDE 101 mmol/L (98-107); CREATININE 1.1 mg/dL (0.6-1.3); GLUCOSE 117 mg/dL (74-106); POTASSIUM 3.9 mmol/L (3.5-5.1); SODIUM SERUM 138 mmol/L (136-145); UREA NITROGEN, BLOOD 24 mg/dL (7-18)
[2017-03-16 09:04] LABS: BAND % (MANUAL) 12 % (0-8); NEUTROPHILS % (MANUAL) 76 (43-65)
[2017-03-16 09:05] LABS: EOSINOPHILS % (MANUAL) 2 % (0-4); LYMPHOCYTES % (MANUAL) 8 % (20-46); MONOCYTES % (MANUAL) 2 % (5-12)
[2017-03-16 09:07] LABS: MAGNESIUM 1.9 mg/dL (1.8-2.4); PHOSPHORUS 3.7 mg/dL (2.5-4.9)
[2017-03-16 09:23] LABS: CREATINE KINASE MB 1.1 ng/mL (0-3.6)
--- NOTE | 2017-03-16 10:00 | NUR ---
PT SITTING UP IN BED IN NAD, JUST FINISHED BREAKFAST, RESP EVEN UNLABORED, APPEARS COMFORTABLE, NO C/O PAIN OR DISCOMFORT, IV SL'D, NO IMMEDIATE NEEDS IDENTIFIED, CALL PEPE WITHIN REACH, ALL SAFETY MEASURES MET, WILL CONTINUE TO MONTIOR
[2017-03-16 12:00] VITALS: BP 98/54
[2017-03-16 15:02] VITALS: BP 98/54
--- NOTE | 2017-03-16 15:04 | NUR ---
PT IS UNABLE TO PRODUCE ANY SPUTUM AT THIS TIME
--- NOTE | 2017-03-16 15:05 | NUR ---
DR ADAIR AT BEDSIDE, PLAN FOR DC DISCUSSED WITH RIG SITE ENGINEER AT BEDSIDE AND FACILITY RN ON THE PHONE WITH DR ADAIR. PT SITTING UP SMILING RESP EVEN UNLABORED ON ROOM AIR IN NAD.
[2017-03-16 16:00] VITALS: BP 99/50
--- NOTE | 2017-03-16 16:26 | NUR ---
PT UP OUT OF BED WITH SOME ASSIST, ABLE TO AMBULATE SLOW STEADY WITH ASSIST USUAL PER SALES COMMISSIONS ANALYST AT BEDSIDE, DC INSTRUCTION GIVEN AND EXPLAINED TO GLOBAL CEO/SALES COMMISSIONS ANALYST AT [facility], IV DC'D CATH TIP INTACT, BLEEDING CONTROLLED, DC HOME NOW WITH GLOBAL CEO. ESCORTED OUT BY RN IN WHEEL CHAIR.
== END 2017-03-16 16:40 | disposition home or self-care (01) ==
LOC: MED 13:47 → MTU 18:02
PROVIDERS: ADMIT Family Medicine; ATTEND Family Medicine
DX: A41.9 Sepsis, unspecified organism (principal); I50.9 Heart failure, unspecified; I48.91 Unspecified atrial fibrillation
CPT/HCPCS: 36415; 71010; 76856; 80048; 80053; 80162; 81001; 82150; 82550; 82553; 83605; 83690; 83735; 83880; 84100; 84436; 84443; 84484; 85025; 85610; 85730; 87040; 87081; 87086; 93005; 93970; 96361; 96365; 96367; 96374; 96375; 96376; 99285; C1758; G0378; J1940; J2405; J2543; J3370; J7030; J7060; Q0092

== ENCOUNTER 2017-06-03 18:10 | Emergency (ER) | payer OTHER, MEDICAID ==
[~2017-06-03] VITALS: Ht 162.6 cm; Wt 64.0 kg
[~2017-06-03 18:10] MED LIST changes: -ACET-1182 PO; -NA P RC; -POTA10TA PO; -[UNRECOGNIZED DRUG - CODE] RC
[2017-06-03 18:23] VITALS: BP 118/67
--- NOTE | 2017-06-03 20:15 | NUR ---
PATIENT LEFT WITHOUT BEING SEEN BY DR. SHIN. NO FURTHER CARE PROVIDED FOR PATIENT.
== END 2017-06-03 20:15 | disposition left against medical advice (07) ==
LOC: MED 18:10
DX: R53.1 Weakness (principal); R63.0 Anorexia; Z53.21 Procedure and treatment not carried out due to patient leaving prior to being seen by health care provider

== ENCOUNTER 2017-07-24 08:57 | Inpatient (IN) | payer OTHER, MEDICAID ==
[~2017-07-24] VITALS: Ht 165.1 cm; Wt 64.2 kg
[2017-07-24 09:07] VITALS: BP 107/80
--- NOTE | 2017-07-24 09:14 | NUR ---
Patient ambulated to bed 5 with family. RN evaluating patient at bedside.
--- NOTE | 2017-07-24 09:22 | NUR ---
Dr. Arreguin evaluating patient at bedside.
--- NOTE | 2017-07-24 09:22 | NUR ---
81 F BIB SOFTWARE BUILD ENGINEER FROM [facility] WITH C/O WHITE SPOTS ON THE BACK OF HER TOUNGE AND TACHYCARDIA; ACCORDING TO CAREGIVER BY BEDSIDE (Mojgan), PT HAS BEEN ON ABX FOR THE PAST 3 MONTHS FOR UTI; PTS [id number]=[phone]; PT IS A&OX1, AMBULATED WITH S/C; ACCORDING TO CAREGIVER, PT IS AT NEURO BASELINE; NO ACUTE NEURO DEFICITED NOTED; LS ARE DIMINSHED BL; RR ARE EVEN AND UNLABORED; PT IS RVR A FIB ON CM; PT WITH HX OF A FIB; CAREGIVER DENIES ANY FEVERS OR N/V/D; MD WYNNE BY BEDSIDE EXAMINING PT; PATIENT POSITIONED FOR COMFORT; HOB ELEVATED; BEDRAILS UP X2; BED DOWN; ALL NEEDS MET AT THIS TIME; WILL CONTINUE TO MONITOR
[2017-07-24] MEDS ORDERED: NACL 0.9% 1,000 ML IV ONE (09:30)
[2017-07-24 09:57] LABS: HEMATOCRIT 39.5 % (36-48); HEMOGLOBIN 12.4 g/dL (12.0-16.0); MEAN CORPUSCULAR HEMOGLOBIN 27 pg (27-31); MEAN CORPUSCULAR HGB CONC 31 g/dL (33-37); MEAN CORPUSCULAR VOLUME 87 fL (80-94); PLATELET COUNT (AUTO) 212 K/uL (140-450); RED BLOOD CELL COUNT(AUTO) 4.57 MIL/uL (4.20-5.40); RED CELL DISTRIBUTION WIDTH 18.4 % (11.6-13.7); WHITE BLOOD COUNT (AUTO) 8.7 K/uL (4.8-10.8)
[2017-07-24 10:05] LABS: ANION GAP 14.1 (8-16); CARBON DIOXIDE 29.8 mmol/L (21-32); CHLORIDE 104 mmol/L (98-107); GLUCOSE 144 mg/dL (74-106); POTASSIUM 3.9 mmol/L (3.5-5.1); SODIUM SERUM 144 mmol/L (136-145); UREA NITROGEN, BLOOD 28 mg/dL (7-18)
[2017-07-24 10:09] LABS: BASOPHILS % (MANUAL) 0 % (0-2); EOSINOPHILS % (MANUAL) 5 % (0-4); LYMPHOCYTES % (MANUAL) 23 % (20-46); MONOCYTES % (MANUAL) 7 % (5-12)
[2017-07-24 10:10] LABS: ALBUMIN 3.5 g/dL (3.4-5.0); ASPARTATE AMINOTRANSFERASE 32 U/L (15-37); TOTAL BILIRUBIN 0.8 mg/dL (0.0-1.0)
[2017-07-24 10:17] LABS: PROTHROMBIN TIME 19.8 secs (10.8-13.4)
--- NOTE | 2017-07-24 11:08 | NUR ---
pt resting with eyes closed in gurney; nad; caregiver by bedside; will continue to monitor
[2017-07-24] MEDS: NACL 0.9% 1,000 ML IV SCH (11:43)
[2017-07-24] MEDS ORDERED: ALUMINUM HYD/MAG/SIMETHICONE 30 ML UDC PO PRN (11:45)
[2017-07-24] MEDS ORDERED: MORPHINE SULFATE 2 MG/ML SYR IVP PRN (11:45)
[2017-07-24] MEDS ORDERED: DOCUSATE SODIUM 100 MG GELCAP PO PRN (11:45)
[2017-07-24] MEDS ORDERED: HYDROcodone/APAP 7.5/325 MG 1 TAB PO PRN (11:45)
[2017-07-24] MEDS ORDERED: ONDANSETRON 4 MG/2 ML VIAL IM/IVP PRN (11:45)
[2017-07-24] MEDS ORDERED: ACETAMINOPHEN 325 MG TAB PO PRN (11:45)
[2017-07-24] MEDS ORDERED: LORazepam 0.5 MG TAB PO PRN (11:45)
[2017-07-24 11:54] LABS: APPEARANCE,URINE HAZY (CLEAR); BILIRUBIN,URINE NEGATIVE (NEGATIVE); BLOOD, URINE NEGATIVE (NEGATIVE); COLOR,URINE YELLOW (YELLOW); UGLUCOSE NEGATIVE (NEGATIVE)
--- NOTE | 2017-07-24 11:56 | NUR ---
Patient will be admitted to care of [facility]. Admited to Tele. Will go to room 122A. Belongings list completed. Report to Suzanne ALICEA.
[2017-07-24 11:59] LABS: LEUKOCYTE ESTERASE ,URINE 1+ (NEGATIVE); NITRITE, URINE POSITIVE (NEGATIVE)
[2017-07-24 12:00] LABS: RBC,URINE 0-5 (RARE) /HPF (0-5)
[2017-07-24 12:04] LABS: BARBITURATE, URINE NEG. ng/ml (NEG <=200); BENZODIAZEPINE, URINE NEG. ng/mL (NEG <=200); CANNABINOID, URINE NEG. ng/mL (NEG <=50); COCAINE, URINE NEG. ng/mL (NEG <=300); OPIATE, URINE NEG. ng/mL (NEG <=2000); PHENCYCLIDINE SCREEN,URINE NEG. ng/mL (NEG <=25)
[2017-07-24] MEDS ORDERED: DEXTROSE 50% 50 ML SYR IVP PRN ×2 (12:15→19:10)
[2017-07-24] MEDS ORDERED: NITROGLYCERIN 0.4 MG TAB SL PRN (12:15)
[2017-07-24 12:26] LABS: FREE T4 (FREE THYROXINE) 1.49 ng/dL (0.76-1.46); THYROID STIMULATING HORMONE 0.99 uIU/mL (0.34-3.74)
[2017-07-24 12:45] VITALS: BP 134/70
--- NOTE | 2017-07-24 13:00 | NUR ---
ADMITTED THIS 81 Y/O FEMALE FROM ER VIA [facility](NAME ONLY). DX OF HEART FAILURE, PT ON TELE MONITOR (ADMIT STRIP SHOWS AFIB). IV ACCESS TO LT FOREARM, GAUGE 20. INTACT AND PATENT WITH NO S/S OF INFILTRATION. INFUSING IVF NS AT 20ML/HR. PT ACCOMPANIED BY CAREGIVER (CIPRIANO VERA). SKIN INTACT, NONPITTING EDEMA TO BILATERAL LOWER EXT. PT MUMBLES TO SELF, FOLLOWS SIMPLE COMMANDS. EDUCATION PROVIDED ON SAFETY AND FALL PREVENTION. PT UNABLE TO VERBALIZE UNDERSTANDING DUE TO MENTAL STATUS. FALL PREVENTION IN PLACE. ORIENTED TO CALL LIGHT, BED, PHONE, TV, BATHROOM, ID BRACELET ON. BELONGINGS CHECKED, NO VALUABLES. UPPER DENTURE WITH THE PATIENT. PER CIPRIANO, PT ABLE TO USE THE BATHROOM WITH ASSIST. BED ALARM IN PLACE TO ALERT STAFF. DISCUSSED PLAN OF CARE, PT VERBALIZED UNDERSTANDING BUT REQUIRES REINFORCEMENT. CALL LIGHT WITHIN EASY REACH. WILL CONTINUE TO MONITOR. Addendum: 07/24/17 at 1705 by Jose Gonzalez RN SKIN ASSESSMENT DONE, NO PRESSURE ULCER NOTED AT THIS TIME. COCCYX SCAR NOTED BUT SKIN INTACT. PT ABLE TO TURN SELF IN BED. WILL CONTINUE TO MONITOR.
--- NOTE | 2017-07-24 15:30 | NUR ---
PT AWAKE, CALM IN BED. NO C/O PAIN AT THIS TIME. NO S/S OF RESPIRATORY DISTRESS. CALL LIGHT WITHIN EASY REACH. FALL PRECAUTION IN PLACE.
--- NOTE | 2017-07-24 15:39 | NUR ---
SPOKE WITH DR. WATSON REGARDING DIET AND LACTIC ACID AND UA RESULT, SHE STATES SHE'LL PUT ANTIBIOTIC ORDER IN THE COMPUTER. WILL CARRY OUT.
--- NOTE | 2017-07-24 15:45 | NUR ---
CALL RECEIVED FROM PHARMACY RE: QUESTION TO WHEN WAS THE LAST DOSE OF FOSAMAX GIVEN TO THE PATIENT. WILL CALL CIPRIANO CAREGIVER TO GET INFORMATION.
[2017-07-24 16:00] VITALS: BP 114/79
--- NOTE | 2017-07-24 16:00 | NUR ---
CALL PLACED TO [facility]ICE[facility], LEFT A MESSAGE REGARDING WHEN THE PT HAD LAST TAKEN THE FOSAMAX. AWAITING FOR CALL BACK.
--- NOTE | 2017-07-24 16:20 | NUR ---
CALL PLACED TO [facility], NO ANSWER AT THIS TIME. WILL ENDORSE TO NEXT SHIFT TO FOLLOW UP.
[2017-07-24] MEDS ORDERED: BLOOD GLUCOSE MONITORING 1 DEV DEV FS SCH (16:30)
[2017-07-24] MEDS: metFORMIN 500 MG TAB PO SCH (17:53)
[2017-07-24] MEDS: FUROSEMIDE 40 MG TAB PO SCH (17:54)
--- NOTE | 2017-07-24 19:37 | NUR ---
PT AWAKE, RESTING IN BED. NO C/O PAIN. NO S/S OF RESPIRATORY DISTRESS. ENDORSED TO NEXT SHIFT FOR CONTINUITY OF CARE. PT IN STABLE CONDITION.
--- NOTE | 2017-07-24 19:40 | NUR ---
RECEIVED HANDOFF REPORT FROM AM RN. PATIENT IS A&OX1. IV SITE PATENT AND INTACT. PATIENT DENIES PAIN. SAFETY MEASURES ENSURED. CALL LIGHT WITHIN REACH. WILL CONTINUE TO MONITOR.
[2017-07-24 20:00] VITALS: BP 112/67
[2017-07-24] MEDS: ATORVASTATIN 80 MG TAB PO SCH (20:34)
[2017-07-24] MEDS: CALCIUM CARB/VIT-D 500 MG/200 IU 1 TAB PO SCH (20:35)
[2017-07-24] MEDS: CARVEDILOL 3.125 MG TAB PO SCH (20:35)
[2017-07-24] MEDS ORDERED: cefTRIAXone 500 MG VIAL ONE (20:46)
[2017-07-24] MEDS: BLOOD GLUCOSE MONITORING 1 DEV DEV FS SCH (20:58)
[2017-07-24] MEDS ORDERED: CHOLECALCIFEROL PO SCH (21:00)
[2017-07-24] MEDS ORDERED: CALCIUM PO SCH (21:00)
--- NOTE | 2017-07-24 22:00 | NUR ---
PATIENT SLEEPING/ NO SIGNS AND SYMPTOMS OF ACUTE DISTRESS. CALL LIGHT WITHIN REACH. WILL CONTINUE TO MONITOR.
[2017-07-25] VITALS: BP 90/70
--- NOTE | 2017-07-25 00:51 | NUR ---
PATIENT SLEEPING. NO SIGNS AND SYMPTOMS OF ACUTE DISTRESS NOTED. CALL LIGHT WITHIN REACH. WILL CONTINUE TO MONITOR.
[2017-07-25] MEDS ORDERED: FLUCONAZOLE 100 MG/NS PREMIX 50 ML IV SCH (01:00)
[2017-07-25] MEDS ORDERED: FLUCONAZOLE 200 MG/NS PREMIX 100 ML IV ONE (02:01)
--- NOTE | 2017-07-25 02:47 | NUR ---
PATIENT SLEEPING. NO SIGNS AND SYMPTOMS OF ACUTE DISTRESS NOTED. CALL LIGHT WITHIN REACH. WILL CONTINUE TO MONITOR.
[2017-07-25 04:00] VITALS: BP 96/61
[2017-07-25] MEDS: NACL 0.9% 1,000 ML IV SCH ×3 (04:23→21:11)
--- NOTE | 2017-07-25 05:20 | NUR ---
PATIENT SLEEPING. NO SIGNS AND SYMPTOMS OF ACUTE DISTRESS NOTED. CALL LIGHT WITHIN REACH. WILL CONTINUE TO MONITOR.
[2017-07-25] MEDS: LEVOTHYROXINE 0.025 MG, LEVOTHYROXINE 0.112 MG PO SCH ×2 (06:14)
[2017-07-25 06:19] LABS: BASOPHILS # (AUTO) 0.3 K/uL (0.00-0.22); EOSINOPHILS # (AUTO) 0.4 K/uL (0-0.4); EOSINOPHILS % (AUTO) 4.5 % (0.0-4.0); HEMATOCRIT 37.6 % (36-48); HEMOGLOBIN 12.1 g/dL (12.0-16.0); LYMPHOCYTES # (AUTO) 1.9 K/uL (2.5-16.5); LYMPHOCYTES % (AUTO) 20.4 % (20.5-51.1); MEAN CORPUSCULAR HEMOGLOBIN 28 pg (27-31); MEAN CORPUSCULAR HGB CONC 32 g/dL (33-37); MEAN CORPUSCULAR VOLUME 86 fL (80-94); MONOCYTES # (AUTO) 0.6 K/uL (0.8-1.0); NEUTROPHILS # (AUTO) 6.1 K/uL (1.8-7.7); NEUTROPHILS % (AUTO) 66.1 % (42.2-75.2); PLATELET COUNT (AUTO) 218 K/uL (140-450); RED BLOOD CELL COUNT(AUTO) 4.36 MIL/uL (4.20-5.40); RED CELL DISTRIBUTION WIDTH 18.3 % (11.6-13.7); WHITE BLOOD COUNT (AUTO) 9.3 K/uL (4.8-10.8)
[2017-07-25] MEDS: BLOOD GLUCOSE MONITORING 1 DEV DEV FS SCH ×4 (06:41→21:46)
[2017-07-25 06:46] LABS: MAGNESIUM 1.5 mg/dL (1.8-2.4); PHOSPHORUS 4.3 mg/dL (2.5-4.9)
[2017-07-25] MEDS: metFORMIN 500 MG TAB PO SCH ×2 (06:47→17:20)
[2017-07-25 06:59] LABS: ANION GAP 14.6 (8-16); CARBON DIOXIDE 27.9 mmol/L (21-32); CHLORIDE 104 mmol/L (98-107); GLUCOSE 127 mg/dL (74-106); POTASSIUM 3.5 mmol/L (3.5-5.1); SODIUM SERUM 143 mmol/L (136-145); UREA NITROGEN, BLOOD 29 mg/dL (7-18)
--- NOTE | 2017-07-25 07:19 | NUR ---
ENDORSED PLAN OF CARE TO AM RN. PATIENT STABLE. SAFETY MEASURES ENSURED.
--- NOTE | 2017-07-25 07:30 | NUR ---
RECEIVED PT ON BED AWAKE AND ALERT, ORIENTED X1, TO NAME ONLY. NO SOB NOTED. NO C/O PAIN AT THIS TIME. IV TO LT FOREARM PATENT AND INTACT. CHEST CLEAR. ABDOMEN SOFT, BOWEL SOUNDS PRESENT. BLE SWOLLEN +1 NOTED, BLE ELEVATED WITH PILLOWS. INSTRUCTED PT TO CALL FOR ASSISTANCE, CALL LIGHT WITHIN REACH, BED ON LOW POSITION. PT VERBALIZED PARTIAL UNDERSTANDING.
[2017-07-25 08:00] VITALS: BP 112/82
--- NOTE | 2017-07-25 08:45 | NUR ---
[facility] REFERRAL RECEIVED ON 07/25/17 FOR UNCONTROLLED DIABETES. REFERRAL REASON DOES NOT MEET HIGH RISK CRITERIA PER HOSPITAL POLICY. PT WILL BE SEEN AND ASSESSED ACCORDING TO THE NUTRITION CARE POLICY. SINCERE CORONA MBA, RD
[2017-07-25] MEDS ORDERED: DIGOXIN PO SCH (09:00)
[2017-07-25] MEDS: ENALAPRIL 2.5 MG TAB PO SCH (09:00)
[2017-07-25] MEDS: CARVEDILOL 3.125 MG TAB PO SCH ×2 (09:00→21:11)
[2017-07-25] MEDS ORDERED: NON-FORMULARY ITEM (Levothyroxine Sodium (Synthroid) 1 TAB) PO SCH (09:00)
[2017-07-25] MEDS: ASPIRIN 81 MG TAB.CHEW PO SCH (09:01)
[2017-07-25] MEDS: CALCIUM CARB/VIT-D 500 MG/200 IU 1 TAB PO SCH ×2 (09:01→21:11)
[2017-07-25] MEDS: RIVAROXABAN 15 MG TAB PO SCH (09:01)
[2017-07-25] MEDS: MULTIVITAMIN 1 TAB PO SCH (09:01)
[2017-07-25] MEDS: FUROSEMIDE 40 MG TAB PO SCH ×2 (09:01→17:21)
[2017-07-25] MEDS: DIGOXIN 0.125 MG TAB PO SCH (09:02)
--- NOTE | 2017-07-25 09:54 | NUR ---
PATIENT HAS BEEN SCREENED AND CATEGORIZED HIGH NUTRITION RISK. PATIENT WILL BE SEEN WITHIN 1-2 DAYS OF ADMISSION. 07/25/17 - 07/26/17 SINCERE CORONA MBA, RD
--- NOTE | 2017-07-25 10:00 | NUR ---
PT REPOSITIONED Q 2HRS.
--- NOTE | 2017-07-25 11:55 | NUR ---
PRESENT IV INFILTRATED. RESTARTED A NEW IV LINE ON RT HAND WITH GAUGE 22. IV SITE SECURED WITH KERLIX.
[2017-07-25 12:00] VITALS: BP 128/85
[2017-07-25] MEDS: INSULIN LISPRO SLIDING SCALE 100 UNITS/ML VIAL SUBQ PRN ×2 (12:58→17:19)
--- NOTE | 2017-07-25 15:15 | NUR ---
PT RESTING. NO SOB NOTED. NO SIGNS OF PAIN.
[2017-07-25 16:00] VITALS: BP 115/77
[2017-07-25] MEDS ORDERED: MAG SULF 2000 MG/WATER PREMIX 50 ML IV SCH (16:15)
--- NOTE | 2017-07-25 18:00 | NUR ---
PT CONSUMED 75% ON DINNER SERVED. FOOD TOLERATED WELL.
--- NOTE | 2017-07-25 19:02 | NUR ---
PT RESTING. NO SOB NOTED. NO COMPLAINTS MADE. WILL ENDORSE TO NEXT SHIFT NURSE FOR CONTINUITY OF CARE.
--- NOTE | 2017-07-25 19:30 | NUR ---
RECEIVED REPORT FROM DAY RN AT BEDSIDE, PATIENT IS AAOX1, CONFUSED. ON ROOM AIR. NO SOB OR SIGN OF DISTRESS AT THIS TIME. IV TO RIGHT HAND PATENT AND INTACT. SKIN INTACT WITH EDEMA TO BLE. ALL OTHER SKIN INTACT. PATIENT DENIES PAIN AT THIS TIME. DISCUSSED PLAN OF CARE WITH PATIENT. PT UNABLE TO VERBALIZE UNDERSTANDING. REINFORCEMENT NEEDED. SAFETY MEASURES CHECKED, BED ALARM ON , CALL LIGHT WITHIN REACH. WILL CONTINUE TO MONITOR
[2017-07-25 20:00] VITALS: BP 110/66
[2017-07-25] MEDS: ATORVASTATIN 80 MG TAB PO SCH (21:10)
[2017-07-25] MEDS: FLUCONAZOLE 100 MG/NS PREMIX 50 ML IV SCH (21:48)
--- NOTE | 2017-07-25 21:53 | NUR ---
PM MEDS ADMINISTERED, CRUSHED AND MIXED WITH APPLESAUCE, PATIENT TOLERATED WELL, CALL LILGHT WITHIN REACH. WILL CONTINUE TO MONITOR
--- NOTE | 2017-07-25 22:45 | NUR ---
PATIENT SLEEPING, NO SIGN OF DISTRESS, CALL LIGHT WITHIN REACH. WILL CONTINUE TO MONITOR.
[2017-07-26] VITALS: BP 117/72
--- NOTE | 2017-07-26 00:35 | NUR ---
VITAL SIGNS STABLE, NO SOB OR SIGN OF DISTRESS, CALL LIGHT WITHIN REACH. WILL CONTINUE OT MONITOR.
--- NOTE | 2017-07-26 02:30 | NUR ---
PATIENT SLEEPING, NO SOB OR SIGN OF DISTRESS, CALL LIGHT WITHIN REACH. WILL CONTINUE TO MONITOR.
[2017-07-26 04:00] VITALS: BP 114/70
--- NOTE | 2017-07-26 04:05 | NUR ---
VITAL SIGNS STABLE, NO SOB OR SIGN OF DISTRESS, CALL LIGHT WITHIN REACH. WILL CONTINUE TO MONITOR
[2017-07-26] MEDS: LEVOTHYROXINE 0.025 MG, LEVOTHYROXINE 0.112 MG PO SCH ×2 (05:46)
[2017-07-26 06:24] LABS: BASOPHILS # (AUTO) 0.2 K/uL (0.00-0.22); EOSINOPHILS # (AUTO) 0.5 K/uL (0-0.4); EOSINOPHILS % (AUTO) 5.9 % (0.0-4.0); HEMATOCRIT 36.2 % (36-48); HEMOGLOBIN 11.8 g/dL (12.0-16.0); LYMPHOCYTES # (AUTO) 1.9 K/uL (2.5-16.5); LYMPHOCYTES % (AUTO) 24.7 % (20.5-51.1); MEAN CORPUSCULAR HEMOGLOBIN 28 pg (27-31); MEAN CORPUSCULAR HGB CONC 33 g/dL (33-37); MEAN CORPUSCULAR VOLUME 86 fL (80-94); MONOCYTES # (AUTO) 0.6 K/uL (0.8-1.0); MONOCYTES % (AUTO) 7.5 % (1.7-9.3); NEUTROPHILS # (AUTO) 4.5 K/uL (1.8-7.7); NEUTROPHILS % (AUTO) 58.9 % (42.2-75.2); PLATELET COUNT (AUTO) 202 K/uL (140-450); RED BLOOD CELL COUNT(AUTO) 4.23 MIL/uL (4.20-5.40); RED CELL DISTRIBUTION WIDTH 18.4 % (11.6-13.7); WHITE BLOOD COUNT (AUTO) 7.7 K/uL (4.8-10.8)
[2017-07-26 06:34] LABS: ANION GAP 12.2 (8-16); CARBON DIOXIDE 29.1 mmol/L (21-32); CHLORIDE 106 mmol/L (98-107); CREATININE 0.9 mg/dL (0.6-1.3); GLUCOSE 118 mg/dL (74-106); POTASSIUM 3.3 mmol/L (3.5-5.1); SODIUM SERUM 144 mmol/L (136-145); UREA NITROGEN, BLOOD 24 mg/dL (7-18)
[2017-07-26] MEDS: BLOOD GLUCOSE MONITORING 1 DEV DEV FS SCH ×4 (06:34→20:19)
[2017-07-26] MEDS: metFORMIN 500 MG TAB PO SCH ×2 (06:37→18:06)
--- NOTE | 2017-07-26 07:19 | NUR ---
RECEIVED REPORT FROM PROCESS STEWARD RN, PATIENT IN STABLE CONDITION AT THIS TIME.
--- NOTE | 2017-07-26 07:20 | NUR ---
ENDORSED PATIENT TO DAY RN AT BEDSIDE, PATIENT IN STABLE CONDITION
[2017-07-26 08:00] VITALS: BP 119/68
[2017-07-26] MEDS: DIGOXIN 0.125 MG TAB PO SCH (09:25)
[2017-07-26] MEDS: RIVAROXABAN 15 MG TAB PO SCH (09:25)
[2017-07-26] MEDS: CARVEDILOL 3.125 MG TAB PO SCH ×2 (09:26→20:24)
[2017-07-26] MEDS: CALCIUM CARB/VIT-D 500 MG/200 IU 1 TAB PO SCH ×2 (09:26→20:24)
[2017-07-26] MEDS: ENALAPRIL 2.5 MG TAB PO SCH (09:26)
[2017-07-26] MEDS: FUROSEMIDE 40 MG TAB PO SCH ×2 (09:26→18:07)
[2017-07-26] MEDS: MULTIVITAMIN 1 TAB PO SCH (09:27)
[2017-07-26] MEDS: ASPIRIN 81 MG TAB.CHEW PO SCH (09:27)
[2017-07-26] MEDS ORDERED: POTASSIUM CHLORIDE 10 MEQ TABER PO SCH (11:00)
--- NOTE | 2017-07-26 11:00 | NUR ---
INFORMED DR. CHA ABOUT PT POTASSIUM 3.3, DR STATED SHE WILL PUT IN AN ORDER.
[2017-07-26 12:00] VITALS: BP 99/64
[2017-07-26 16:00] VITALS: BP 116/70
[2017-07-26] MEDS: INSULIN LISPRO SLIDING SCALE 100 UNITS/ML VIAL SUBQ PRN (18:09)
--- NOTE | 2017-07-26 19:05 | NUR ---
ENDORSED TO PROCESS IMPROVEMENT SPECIALIST RN FOR CONTINUITY OF CARE.
[2017-07-26] MEDS: NACL 0.9% 1,000 ML IV SCH (19:28)
[2017-07-26 20:00] VITALS: BP 117/83
[2017-07-26] MEDS: FLUCONAZOLE 100 MG/NS PREMIX 50 ML IV SCH (20:23)
[2017-07-26] MEDS: ATORVASTATIN 80 MG TAB PO SCH (20:24)
--- NOTE | 2017-07-26 20:33 | NUR ---
PM MEDICATION GIVEN, PATIENT TOLERATED WELL. WILL CONTINUE TO MONITOR.
--- NOTE | 2017-07-26 21:14 | NUR ---
CHANGED PATIENT'S GOWN AND CLEANED PATIENT WITH RODEO RIDER, PUT PATIENT TO HER COMFORTABLE POSITION AND STARTED ROCEPHIN, PATIENT RESTING IN BED, NO S/S OF ACUTE DISTRESS NOTED, CALL LIGHT WITHIN REACH, SAFETY MEASURE ENSURED, WILL CONTINUE TO MONITOR.
--- NOTE | 2017-07-26 23:50 | NUR ---
MINIMUM AMOUNT OF DRY BLOOD NOTED ON THE PATIENT'S LIPS, UPON ASSESSMENT, RED SCRATCH LIKE VELEZ NOTED ON THE ROOF OF PATIENT'S MOUTH AND TOP OF HER TONGUE, NO ACTIVE BLEEDING NOTED FROM THE SCRATCH VELEZ. MADE DR. RUIZ AWARE AND DR. RUIZ SAID," I WILL CHECK THE PATIENT."
[2017-07-27] VITALS: BP 120/68
--- NOTE | 2017-07-27 00:48 | NUR ---
PATIENT SLEEPING IN BED, NO S/S OF ACUTE DISTRESS NOTED, RESPIRATION EVEN AND UNLABORED, CALL LIGHT WITHIN REACH, SAFETY MEASURE ENSURED, WILL CONTINUE TO MONITOR.
--- NOTE | 2017-07-27 02:20 | NUR ---
PATIENT SLEEPING IN BED, NO S/S OF ACUTE DISTRESS NOTED, RESPIRATION EVEN AND UNLABORED, CALL LIGHT WITHIN REACH, SAFETY MEASURE ENSURED, WILL CONTINUE TO MONITOR.
[2017-07-27 04:00] VITALS: BP 126/86
--- NOTE | 2017-07-27 04:45 | NUR ---
NOTED PATIENT VOID IN THE BED, CHANGED PATIENT'S GOWN AND CLEANED PATIENT WITH MERCHANDISE PICKUP/RECEIVING ASSOCIATE, PUT PATIENT TO HER COMFORTABLE POSITION, NO S/S OF ACUTE DISTRESS NOTED, CALL LIGHT WITHIN REACH, SAFETY MEASURE ENSURED, WILL CONTINUE TO MONITOR.
[2017-07-27 05:51] LABS: BASOPHILS # (AUTO) 0.2 K/uL (0.00-0.22); EOSINOPHILS # (AUTO) 0.6 K/uL (0-0.4); EOSINOPHILS % (AUTO) 6.8 % (0.0-4.0); HEMATOCRIT 36.4 % (36-48); HEMOGLOBIN 11.6 g/dL (12.0-16.0); LYMPHOCYTES % (AUTO) 22.6 % (20.5-51.1); MEAN CORPUSCULAR HEMOGLOBIN 28 pg (27-31); MEAN CORPUSCULAR HGB CONC 32 g/dL (33-37); MEAN CORPUSCULAR VOLUME 86 fL (80-94); MONOCYTES # (AUTO) 0.6 K/uL (0.8-1.0); MONOCYTES % (AUTO) 7.3 % (1.7-9.3); NEUTROPHILS # (AUTO) 5.5 K/uL (1.8-7.7); NEUTROPHILS % (AUTO) 61.3 % (42.2-75.2); PLATELET COUNT (AUTO) 199 K/uL (140-450); RED BLOOD CELL COUNT(AUTO) 4.21 MIL/uL (4.20-5.40); RED CELL DISTRIBUTION WIDTH 18.5 % (11.6-13.7); WHITE BLOOD COUNT (AUTO) 8.9 K/uL (4.8-10.8)
[2017-07-27] MEDS: LEVOTHYROXINE 0.025 MG, LEVOTHYROXINE 0.112 MG PO SCH ×2 (06:15)
--- NOTE | 2017-07-27 06:23 | NUR ---
AM MEDICATION GIVEN, PATIENT TOLERATED WELL. NO S/S OF ACUTE DISTRESS NOTED, RESPIRATION EVEN AND UNLABORED, WILL CONTINUE TO MONITOR.
[2017-07-27 06:27] LABS: ANION GAP 11.5 (8-16); CARBON DIOXIDE 30.8 mmol/L (21-32); CHLORIDE 106 mmol/L (98-107); CREATININE 0.9 mg/dL (0.6-1.3); GLUCOSE 112 mg/dL (74-106); POTASSIUM 3.3 mmol/L (3.5-5.1); SODIUM SERUM 145 mmol/L (136-145); UREA NITROGEN, BLOOD 23 mg/dL (7-18)
[2017-07-27] MEDS: BLOOD GLUCOSE MONITORING 1 DEV DEV FS SCH ×2 (06:42→11:30)
[2017-07-27] MEDS: metFORMIN 500 MG TAB PO SCH (06:45)
--- NOTE | 2017-07-27 07:46 | NUR ---
ENDORSED PLAN OF CARE TO DAY RN. PATIENT IN STABLE CONDITION, NO S/S OF ACUTE DISTRESS.
--- NOTE | 2017-07-27 07:46 | NUR ---
RECEIVED REPORT FROM PM NURSE FOR CONTINUITY OF CARE. PT SITTING, BEING FED BY MUTUEL CLERK. INITIAL ASSESSMENT DONE. RESP EVEN AND UNLABORED. IV INTACT, NO SWELLING OR REDNESS NOTED. SKIN IS INTACT, WARM AND DRY. DISCUSSED PLAN OF CARE WITH PT, VERBALIZED UNDERSTANDING. PT DENIES ANY FURTHER NEEDS AT THIS TIME. SAFETY MEASURES IN PLACED. BED LOCKED ON LOW POSITION, SIDE RAILS UP, CALL LIGHT WITHIN REACH. WILL CONTINUE TO MONITOR
--- NOTE | 2017-07-27 07:59 | NUR ---
07/27/17 RD INITIAL ASSESSMENT COMPLETED PLEASE REFER TO NUTRITION ASSESSMENT UNDER CARE ACTIVITY FOR ESTIMATED NUTRITIONAL NEEDS. 1. CHANGE DIET TO - CARDIAC, 45G CONSISTENT CARBOHYDRATE, MECHANICAL SOFT DIET 2. RD TO FOLLOW-UP 3-5 DAYS, MODERATE RISK LARA GUTIERREZ, WILFREDO
[2017-07-27 08:00] VITALS: BP 124/79
[2017-07-27] MEDS: DIGOXIN 0.125 MG TAB PO SCH (08:35)
[2017-07-27] MEDS: CALCIUM CARB/VIT-D 500 MG/200 IU 1 TAB PO SCH (08:35)
[2017-07-27] MEDS: MULTIVITAMIN 1 TAB PO SCH (08:35)
[2017-07-27] MEDS: RIVAROXABAN 15 MG TAB PO SCH (08:36)
[2017-07-27] MEDS: FUROSEMIDE 40 MG TAB PO SCH (08:37)
[2017-07-27] MEDS: CARVEDILOL 3.125 MG TAB PO SCH (08:37)
[2017-07-27] MEDS: ENALAPRIL 2.5 MG TAB PO SCH (08:37)
[2017-07-27] MEDS: ASPIRIN 81 MG TAB.CHEW PO SCH (08:38)
[2017-07-27] MEDS ORDERED: LACTOBACILLUS RHAMNOSUS GG 1 EACH CAP PO SCH (09:00)
--- NOTE | 2017-07-27 10:35 | NUR ---
PT SLEEPING BUT EASILY AWAKENS. NO S/S OF DISTRESS OR SOB. RESP EVEN AND UNLABORED. SAFETY MEASURES IN PLACED. WILL CONTINUE TO MONITOR.
--- NOTE | 2017-07-27 11:20 | NUR ---
PHYSICAL THERAPY AT BEDSIDE. PT AMBULATED TO THE HALLWAY WITH WALKER.
[2017-07-27 12:00] VITALS: BP 103/70
--- NOTE | 2017-07-27 14:08 | NUR ---
[facility] called, no answer, left message on therapy manager Lorena's voice mail regarding discharge. awaiting call back.
--- NOTE | 2017-07-27 14:21 | NUR ---
PT SLEEPING, AWAKENS EASILY. RESP EVEN AND UNLABORED. NO S/S OF DISTRESS, SOB, OR RESTLESSNESS. SAFTY MEASURES IN PLACED. WILL CONTINUE TO MONITOR.
[2017-07-27] MEDS ORDERED: POTASSIUM CHLORIDE 10 MEQ TABER PO SCH (15:00)
[2017-07-27] MEDS ORDERED: NITR50CA1 PO (15:06)
--- NOTE | 2017-07-27 16:10 | NUR ---
IV DC'D, CATH TIP INTACT, BLEEDING CONTROLLED, PT GILMA WELL, PT CHANGED OUT OF HOSPITAL GOWN, AWAITING [facility] HOUSE STAFF TO PICK HER UP.
--- NOTE | 2017-07-27 16:25 | NUR ---
JORDYN VERA, APPLICATIONS SYSTEMS ENGINEER FROM [facility] ABOARD THE DECK FOR PT. DC'ED INSTRUCTIONS, RX INFORMATION, EDUCATION PROVIDED TO THE APPLICATIONS SYSTEMS ENGINEER. APPLICATIONS SYSTEMS ENGINEER VERBALIZED UNDERSTANDING. ESCORTED PT TO THE LOBBY VIA WHEELCHAIR. PT'S PERSONAL BELONGINGS GIVEN TO APPLICATIONS SYSTEMS ENGINEER. PT IS IN STABLE CONDITION.
[2017-07-29] MEDS ORDERED: ALENDRONATE SODIUM 70 MG TAB PO SCH (09:00)
== END 2017-07-27 16:25 | DRG 314 ==
LOC: MED 08:57 → MTU 11:43
PROVIDERS: ADMIT Family Medicine; ATTEND Family Medicine
DX: I42.0 Dilated cardiomyopathy (principal); N17.0 Acute kidney failure with tubular necrosis; E87.2 Acidosis; B37.0 Candidal stomatitis; D68.59 Other primary thrombophilia; I50.9 Heart failure, unspecified; I11.0 Hypertensive heart disease with heart failure; N39.0 Urinary tract infection, site not specified; E11.51 Type 2 diabetes mellitus with diabetic peripheral angiopathy without gangrene; E11.65 Type 2 diabetes mellitus with hyperglycemia; E03.9 Hypothyroidism, unspecified; E78.5 Hyperlipidemia, unspecified; I48.2 Chronic atrial fibrillation; K21.9 Gastro-esophageal reflux disease without esophagitis; M81.0 Age-related osteoporosis without current pathological fracture; I34.0 Nonrheumatic mitral (valve) insufficiency; G30.9 Alzheimer's disease, unspecified; F02.80 Dementia in other diseases classified elsewhere, unspecified severity, without behavioral disturbance, psychotic disturbance, mood disturbance, and anxiety; Z79.84 Long term (current) use of oral hypoglycemic drugs
CPT/HCPCS: 36415; 71010; 71020; 80048; 80053; 80162; 80305; 81001; 82150; 82948; 83605; 83690; 83735; 83880; 84100; 84436; 84439; 84443; 84479; 84484; 85025; 85610; 85730; 87040; 87081; 87086; 93005; 93925; 93970; 96360; 97116; 97140; 99285; J0696; J1450; J3475; J7030; J7060; Q0092

== ENCOUNTER 2018-01-15 16:21 | Emergency (ER) | payer OTHER, MEDICAID ==
[~2018-01-15] VITALS: Ht 160 cm; Wt 67.6 kg
[~2018-01-15 16:21] MED LIST changes: -ASPI81CT27 PO; +ASPI81CT95 PO; +CARB15DR5 OT; +GLU500 PO; -METF500T64 PO; +NITR50CA1 PO; -POTA8TER12 PO; -SACC250C4 PO; -SULF-58 PO; -[UNRECOGNIZED DRUG - OTHER] OT
[2018-01-15 16:40] VITALS: BP 148/80
--- NOTE | 2018-01-15 16:42 | NUR ---
PT SENT TO LOBBY WITH INTERNAL AUDIT SENIOR MANAGER TO WAIT FOR ED BED/CHAIR. PT AMBULATES WITH ASSISTANCE.
--- NOTE | 2018-01-15 18:27 | NUR ---
Dr. Arreguin evaluating patient.
--- NOTE | 2018-01-15 18:42 | NUR ---
Patient returned from CT scan.
--- NOTE | 2018-01-15 18:45 | NUR ---
received patient from ct scan. per caregiver patient had an unwitness fall this am. since incident no episodes of n,v, dizziness, or change in mentation. observed bruising to right orbital area. patient observed to be interacting with her caregiver, and smiling. patient was evaluated by Dr. Reed. deny downey to monitor.
--- NOTE | 2018-01-15 19:20 | NUR ---
Patient discharged with v/s stable. Written and verbal after care instructions given and explained. Patient verbalized understanding. Ambulatory with steady gait. All questions addressed prior to discharge. Advised to follow up with PMD.
[2018-01-15 19:41] VITALS: BP 135/75
== END 2018-01-15 19:20 | disposition home or self-care (01) ==
LOC: MED 16:21
DX: S00.83XA Contusion of other part of head, initial encounter (principal); E11.9 Type 2 diabetes mellitus without complications; K21.9 Gastro-esophageal reflux disease without esophagitis; I10 Essential (primary) hypertension; F03.90 Unspecified dementia, unspecified severity, without behavioral disturbance, psychotic disturbance, mood disturbance, and anxiety; Z79.899 Other long term (current) drug therapy; Z79.82 Long term (current) use of aspirin; Z79.84 Long term (current) use of oral hypoglycemic drugs; W19.XXXA Unspecified fall, initial encounter; Y93.89 Activity, other specified; Y92.89 Other specified places as the place of occurrence of the external cause; Y99.8 Other external cause status
CPT/HCPCS: 70450; 99284

== ENCOUNTER 2019-08-23 11:54 | Inpatient (IN) | payer OTHER, MEDICAID ==
[~2019-08-23] VITALS: Ht 160 cm; Wt 65.8 kg
[2019-08-23 11:58] VITALS: BP 138/75
--- NOTE | 2019-08-23 11:59 | NUR ---
Patient transferred to bed 7 via wheelchair caregiver. RN evaluating patient at bedside.
[2019-08-23] MEDS ORDERED: ALBUTEROL SULFATE/IPRATROPIU 3 ML SOL IH ONE ×2 (12:05→12:40)
--- NOTE | 2019-08-23 12:10 | NUR ---
BIB CAREGIVER FROM [facility] C/O COUGH WITH CHEST CONGESTION SINCE YESTERDAY. CAREGIVER STATES HEARING WHEEZINGS WHEN SHE COUGHES. DENIES NAUSEA OR VOMITING. DENIES ANY PAIN AT THIS TIME. LBM WAS YESTERDAY. PT WEARS DIAPERS. PATIENT STATES PAIN OF 0/10 AT THIS TIME; VSS; PATIENT POSITIONED FOR COMFORT; HOB ELEVATED; BEDRAILS UP X2; BED DOWN. ER MD MADE AWARE OF PT STATUS. CAREGIVER IS AT BEDSIDE. PT IS ON MONITOR.
--- NOTE | 2019-08-23 12:10 | NUR ---
XRAY IS AT BEDSIDE.
--- NOTE | 2019-08-23 12:16 | NUR ---
RT IS AT BEDSIDE AND IMPLEMENTING 1ST BREATHING TREATMENT.
--- NOTE | 2019-08-23 12:50 | NUR ---
URINE SAMPLE OBTAINED VIA STRAIGHT CATHETER. PT TORATED WELL. URINE OUT PUT 300ML.
--- NOTE | 2019-08-23 12:52 | NUR ---
RT IS AT BEDSIDE AND IMPLEMENTING THE SECOND BREATH TREATMENT.
[2019-08-23 13:16] LABS: BASOPHILS % (AUTO) 0.4 % (0.0-2.0); EOSINOPHILS # (AUTO) 0.3 K/uL (0-0.4); EOSINOPHILS % (AUTO) 2.9 % (0.0-4.0); HEMATOCRIT 41.7 % (36-48); HEMOGLOBIN 13.3 g/dL (12.0-16.0); LYMPHOCYTES # (AUTO) 2.2 K/uL (2.5-16.5); LYMPHOCYTES % (AUTO) 20.5 % (20.5-51.1); MEAN CORPUSCULAR HEMOGLOBIN 29 pg (27-31); MEAN CORPUSCULAR HGB CONC 32 g/dL (33-37); MEAN CORPUSCULAR VOLUME 90.1 fL (80-94); MONOCYTES # (AUTO) 0.9 K/uL (0.8-1.0); MONOCYTES % (AUTO) 8.4 % (1.7-9.3); NEUTROPHILS # (AUTO) 7.2 K/uL (1.8-7.7); NEUTROPHILS % (AUTO) 67.8 % (42.2-75.2); PLATELET COUNT (AUTO) 280 K/uL (140-450); RED BLOOD CELL COUNT(AUTO) 4.63 MIL/uL (4.20-5.40); WHITE BLOOD COUNT (AUTO) 10.7 K/uL (4.8-10.8)
--- NOTE | 2019-08-23 13:22 | NUR ---
Dr. Richards evaluating patient at bedside.
[2019-08-23 13:25] LABS: ANION GAP 11.4 (8-16); CARBON DIOXIDE 36.2 mmol/L (21-32); CHLORIDE 101 mmol/L (98-107); CREATININE 0.9 mg/dL (0.6-1.3); GLUCOSE 129 mg/dL (74-106); POTASSIUM 3.6 mmol/L (3.5-5.1); SODIUM SERUM 145 mmol/L (136-145); UREA NITROGEN, BLOOD 20 mg/dL (7-18)
--- NOTE | 2019-08-23 13:28 | NUR ---
PT SLEEPING, AROUSABLE TO NAME, CAREGIVER AT BEDSIDE. VSS. RR EVEN AND UNLABORED. BLANKET PROVIDED, ALL NEEDS MET.
[2019-08-23 13:31] LABS: ALBUMIN 3.7 g/dL (3.4-5.0); ASPARTATE AMINOTRANSFERASE 20 U/L (15-37); TOTAL BILIRUBIN 0.8 mg/dL (0.0-1.0)
[2019-08-23] MEDS: NACL 0.9% 1,000 ML IV SCH (14:03)
[2019-08-23] MEDS ORDERED: DOCUSATE SODIUM 100 MG GELCAP PO PRN (14:05)
[2019-08-23] MEDS ORDERED: ACETAMINOPHEN 325 MG TAB PO PRN (14:05)
[2019-08-23] MEDS ORDERED: HYDROcodone/APAP 7.5/325 MG 1 TAB PO PRN (14:05)
[2019-08-23] MEDS ORDERED: ONDANSETRON 4 MG/2 ML VIAL IM/IVP PRN (14:05)
--- NOTE | 2019-08-23 14:15 | NUR ---
MEDICAL STUDENTS OF DR. YORK ARE AT BEDSIDE.
[2019-08-23 14:28] LABS: APPEARANCE,URINE CLOUDY (CLEAR); BILIRUBIN,URINE NEGATIVE (NEGATIVE); BLOOD, URINE NEGATIVE (NEGATIVE); LEUKOCYTE ESTERASE ,URINE TRACE (NEGATIVE); NITRITE, URINE NEGATIVE (NEGATIVE); PH,URINE 5.5 (5.0-9.0); UGLUCOSE NEGATIVE (NEGATIVE)
[2019-08-23] MEDS ORDERED: ENAL5TAB48 PO (14:30)
[2019-08-23] MEDS ORDERED: ATOR20TA40 PO (14:30)
[2019-08-23] MEDS ORDERED: RIVA15TA1 PO (14:30)
[2019-08-23] MEDS ORDERED: RANI150C PO (14:30)
[2019-08-23] MEDS ORDERED: [UNRECOGNIZED DRUG - CODE] PO (14:30)
[2019-08-23] MEDS ORDERED: CALC-53 PO (14:30)
[2019-08-23] MEDS ORDERED: MULT-405 PO (14:30)
[2019-08-23] MEDS ORDERED: LEVE500T9 PO (14:30)
[2019-08-23] MEDS ORDERED: KETO2CRE3 TP (14:30)
[2019-08-23] MEDS ORDERED: MIRABULK PO (14:30)
[2019-08-23] MEDS ORDERED: CRAN250T PO (14:30)
[2019-08-23] MEDS ORDERED: CARV3.12 PO (14:30)
[2019-08-23] MEDS ORDERED: WHEA1POW16 PO (14:30)
[2019-08-23] MEDS ORDERED: METF1000 PO (14:30)
[2019-08-23 14:31] LABS: PROTHROMBIN TIME 17.2 secs (10.8-13.4)
--- NOTE | 2019-08-23 14:35 | NUR ---
Patient will be admitted to care of CHF. Admited to TELEMETRY. Will go to room 121A. Belongings list completed. Report to DEANNE HERNANDEZ.
[2019-08-23 14:42] LABS: CHOL/HDL RATIO 3.8 (1-4.5); FREE T4 (FREE THYROXINE) 1.23 ng/dL (0.76-1.46); MAGNESIUM 1.6 mg/dL (1.8-2.4); PHOSPHORUS 3.5 mg/dL (2.5-4.9); THYROID STIMULATING HORMONE 4.49 uIU/mL (0.34-3.74)
[2019-08-23 14:50] LABS: COLOR,URINE YELLOW (YELLOW)
[2019-08-23 14:54] LABS: RBC,URINE NONE SEEN /HPF (0-5); TRICHOMONAS,URINE None Seen /HPF (None Seen); YEAST,URINE None Seen /HPF (None Seen)
[2019-08-23] MEDS ORDERED: FUROSEMIDE 20 MG/2 ML VIAL IVP SCH (15:16)
[2019-08-23] MEDS ORDERED: DEXTROSE 50% 50 ML SYR IVP PRN (15:35)
[2019-08-23 16:00] VITALS: BP 138/81
[2019-08-23] MEDS: BLOOD GLUCOSE MONITORING 1 DEV DEV FS SCH ×2 (16:30→21:33)
--- NOTE | 2019-08-23 16:30 | NUR ---
RECEIVED PATIENT FROM ER NURSE ANGEL. PATIENT WAS ON ROOM AIR, NO SIGNS OF RESP DISTRESS. PATIENT CAME FROM [facility]. IV TO RIGHT WRIST 22G WITH NS INFUSING AT 10ML/HR FOR TKO. WILL CONTINUE TO MONITOR AND ENDORSE TO NEXT SHIFT
[2019-08-23] MEDS: ALBUTEROL SULFATE/IPRATROPIU 3 ML SOL IH PRN (16:31)
--- NOTE | 2019-08-23 16:55 | NUR ---
HUNG UP IVPB ROCEPHIN FIRST DOSE.
[2019-08-23] MEDS ORDERED: MAG SULF 2000 MG/WATER PREMIX 50 ML IV SCH (17:00)
--- NOTE | 2019-08-23 17:13 | NUR ---
INSERTED VICK CATHETER 16FR. PATIENT TOLERATED WELL. GOOD URINE OUTPUT RETURN DURING INSERTION.
[2019-08-23] MEDS ORDERED: HALOPERIDOL IM 5 MG/ML VIAL IM SCH (18:00)
--- NOTE | 2019-08-23 19:00 | NUR ---
RECEIVED PT FROM DAVID ALICEA PT AAOX1 FOLLOW COMMANDS, IV ON RT WRIST INFUSING WELL TKKO, ON TELMETRY SR OR SB SLIND IS INTSCT INITIAL ASSESSMENT DONE
[2019-08-23 20:00] VITALS: BP 136/65
[2019-08-23] MEDS: ALBUTEROL SULFATE/IPRATROPIU 3 ML SOL IH SCH (20:12)
[2019-08-23] MEDS: CARVEDILOL 3.125 MG TAB PO SCH ×2 (21:00→21:39)
[2019-08-23] MEDS ORDERED: metFORMIN 500 MG TAB PO SCH (21:00)
--- NOTE | 2019-08-23 21:00 | NUR ---
PT LINEN CHANGED INCONTINENT REPOSITIONED Q2H ON TELE SB/SR ;, VICK CATH DRAINING WELL YELLOW URINE
[2019-08-23] MEDS: INSULIN LISPRO SLIDING SCALE 100 UNITS/ML VIAL SUBQ PRN (21:34)
[2019-08-23] MEDS: DOCUSATE SODIUM 250 MG GELCAP PO SCH (21:38)
[2019-08-23] MEDS: levETIRAcetam 500 MG TAB PO SCH (21:39)
[2019-08-24] VITALS: BP 144/68
--- NOTE | 2019-08-24 | NUR ---
PT REPOSITIONED Q2H, NOT DISTRESS NOTED ON TELMETRY CONTROLLED AFIB PT SLEEPING WELL
--- NOTE | 2019-08-24 02:22 | NUR ---
LINEN CHANGED REMAIN CALM ON TELE CONTROLLED AFIB IV ON RT WRIST INFUSING WELL
[2019-08-24 04:00] VITALS: BP 135/60
--- NOTE | 2019-08-24 05:00 | NUR ---
SPONGE BATH GIVEN LINEN CHANGED ON TELE CONTROLLED AFIB
[2019-08-24 06:39] LABS: BASOPHILS # (AUTO) 0.1 K/uL (0.00-0.22); BASOPHILS % (AUTO) 0.5 % (0.0-2.0); EOSINOPHILS # (AUTO) 0.4 K/uL (0-0.4); EOSINOPHILS % (AUTO) 3.6 % (0.0-4.0); HEMATOCRIT 37.8 % (36-48); LYMPHOCYTES # (AUTO) 2.3 K/uL (2.5-16.5); LYMPHOCYTES % (AUTO) 19.3 % (20.5-51.1); MEAN CORPUSCULAR HEMOGLOBIN 29 pg (27-31); MEAN CORPUSCULAR HGB CONC 32 g/dL (33-37); MEAN CORPUSCULAR VOLUME 90.1 fL (80-94); MONOCYTES % (AUTO) 8.8 % (1.7-9.3); NEUTROPHILS # (AUTO) 7.9 K/uL (1.8-7.7); NEUTROPHILS % (AUTO) 67.8 % (42.2-75.2); PLATELET COUNT (AUTO) 318 K/uL (140-450); RED BLOOD CELL COUNT(AUTO) 4.19 MIL/uL (4.20-5.40); RED CELL DISTRIBUTION WIDTH 18.5 % (11.6-13.7); WHITE BLOOD COUNT (AUTO) 11.7 K/uL (4.8-10.8)
[2019-08-24] MEDS: LEVOTHYROXINE 0.025 MG TAB PO SCH (06:44)
[2019-08-24] MEDS: BLOOD GLUCOSE MONITORING 1 DEV DEV FS SCH ×4 (06:45→21:21)
[2019-08-24] MEDS: ALBUTEROL SULFATE/IPRATROPIU 3 ML SOL IH SCH ×3 (06:55→19:24)
--- NOTE | 2019-08-24 07:00 | NUR ---
PT WILL BE ENDORSED TO DAY SHIFT NURSE FOR CONTINUE OF CARE
--- NOTE | 2019-08-24 07:10 | NUR ---
RECEIVED REPORT FROM BASIC ACOUSTIC ANALYST NURSE. PT AWAKE, ORIENTED X1 TO PERSON, NO C/O PAIN AT THIS TIME. PT ON CHIEF OF SERVICE. IV ON RT WRIST 22 GA RUNNING IVF PER ORDER. RESPIRATIONS EVEN AND UNLABORED ON O2 2L VIA N/C. ABD SOFT, BS ACTIVE. PT ON FALL RISK PRECAUTIONS, SAFETY MEASURES IN PLACE, CALL LIGHT WITHIN REACH. SKIN IS INTACT, WARM TO TOUCH. REVIEWED POC WITH PT, PT VERBALIZED UNDERSTANDING.
[2019-08-24 07:18] LABS: ANION GAP 9.9 (8-16); CARBON DIOXIDE 35.4 mmol/L (21-32); CHLORIDE 102 mmol/L (98-107); CREATININE 0.9 mg/dL (0.6-1.3); GLUCOSE 135 mg/dL (74-106); POTASSIUM 3.3 mmol/L (3.5-5.1); SODIUM SERUM 144 mmol/L (136-145); UREA NITROGEN, BLOOD 19 mg/dL (7-18)
[2019-08-24 08:00] VITALS: BP 139/87
--- NOTE | 2019-08-24 08:08 | NUR ---
PATIENT HAS BEEN SCREENED AND CATEGORIZED MODERATE NUTRITION RISK. PATIENT WILL BE SEEN WITHIN 3-5 DAYS OF ADMISSION. 08/26/19 08/28/[address]
[2019-08-24] MEDS ORDERED: NACL 0.9% 250 ML IV SCH (08:30)
[2019-08-24] MEDS: levETIRAcetam 500 MG TAB PO SCH ×2 (08:37→21:12)
[2019-08-24] MEDS: DOCUSATE SODIUM 250 MG GELCAP PO SCH ×2 (08:37→21:12)
[2019-08-24] MEDS: DIGOXIN 0.125 MG TAB PO SCH (08:38)
[2019-08-24] MEDS: ENALAPRIL 5 MG TAB PO SCH (08:38)
[2019-08-24] MEDS: metFORMIN 500 MG TAB PO SCH ×2 (08:38→16:39)
[2019-08-24] MEDS: ATORVASTATIN 20 MG TAB PO SCH (08:38)
[2019-08-24] MEDS: CARVEDILOL 3.125 MG TAB PO SCH ×2 (08:39→21:12)
[2019-08-24] MEDS: FUROSEMIDE 20 MG/2 ML VIAL IVP SCH (08:39)
--- NOTE | 2019-08-24 08:39 | NUR ---
PT GIVEN MORNING MEDICATIONS, REVIEWED INDICATIONS AND POTENTIAL SIDE EFFECTS. PT IS ORIENTED X1, WILL NEED FREQUENT REMINDERS AND REORIENTATION TO ROOM AND EQUIPMENT.
[2019-08-24] MEDS: RIVAROXABAN 15 MG TAB PO SCH (08:40)
[2019-08-24] MEDS ORDERED: POTASSIUM CHLORIDE 20% 40 MEQ/15 ML UDC PO SCH (09:15)
--- NOTE | 2019-08-24 10:00 | NUR ---
PT REFUSED LIQUID POTASSIUM, STATES "NO, I DON'T LIKE THE TASTE." INFORMED DR. FLORES, AWAITING ORDERS.
[2019-08-24] MEDS ORDERED: POTASSIUM CHLORIDE 10 MEQ TABER PO SCH (10:15)
--- NOTE | 2019-08-24 10:55 | NUR ---
PT GIVEN ORAL POTASSIUM PER ORDER. PT ABLE TO SWALLOW MED WELL WITH JELLO.
[2019-08-24 12:00] VITALS: BP 131/59
[2019-08-24] MEDS: INSULIN LISPRO SLIDING SCALE 100 UNITS/ML VIAL SUBQ PRN ×3 (12:30→21:27)
[2019-08-24] MEDS: NACL 0.9% 1,000 ML IV SCH (12:32)
--- NOTE | 2019-08-24 12:45 | NUR ---
PT SITTING UP IN BED HAVING LUNCH, PER HIMANSHU/VISITOR SHE NEEDS TO BE FED DURING MEALS. WILL REPORT TO COMBATANT DIVER OFFICER NURSE FOR CONTINUITY OF CARE.
--- NOTE | 2019-08-24 13:12 | NUR ---
PT WILL HAVE BREATHING TREATMENTS AT THIS TIME. PT HAS NO SIGNS OF DISTRESS.
--- NOTE | 2019-08-24 13:21 | NUR ---
*S.T. Bedside swallow eval completed* See report for details. Pt presents w/ moderate oral difficulties due to being edentulous and not having dentures present in hospital. Observed intermittent coughing, but pt is coughing at rest due to chest congestion. S/s aspiration not suspected. Pt able to self-feed w/ mod assist. Recommend: 1) Downgrade diet to mechanical soft ground diet, thin liquids. No straws. controlled cup sips only. NO BREAD OR RICE PRODUCTS. 2) Nsg to assist w/ feeding and/or tray set up to promote self-feeding. 3) P.O. meds crushed w/ puree. 4) Assist pt with denture placement once they are made available by [facility] staff. D/w pt and caregiver at bedside, and endorsed to DEANNE King. Time [id number]
--- NOTE | 2019-08-24 15:10 | NUR ---
PT ASLEEP IN BED AT THIS TIME, RESPIRATIONS EVEN AND UNLABORED ON RA.
--- NOTE | 2019-08-24 15:55 | NUR ---
PT UNDERGOING ECHOCARDIOGRAM AT THIS TIME. PT HAS NO SIGNS OF RESPIRATORY DISTRESS. PT TAKES OF NASAL CANNULA MULTIPLE TIMES THROUGHOUT THE DAY, O2 SAT 95%.
[2019-08-24 16:00] VITALS: BP 145/63
--- NOTE | 2019-08-24 16:05 | NUR ---
PT'S BELONGINGS BROUGHT IN FROM FACILITY. BELONGINGS AT BEDSIDE.
--- NOTE | 2019-08-24 18:22 | NUR ---
BLOOD SUGAR CHECKED AT 163. ADMINISTERED HUMALOG PER SLIDING SCALE. PT STARTED HAVING DINNER AFTER HUMALOG GIVEN.
--- NOTE | 2019-08-24 19:03 | NUR ---
ENDORSED PT TO ENGINEERING OPERATOR NURSE. PT HAS NO SIGNS OF DISTRESS AT THIS TIME.
--- NOTE | 2019-08-24 19:03 | NUR ---
RECIEVED PT AAOX1 , WITH HX OF DEMENTIA , AND SCHIZOPHRENIA , NID , PT KEEPS REMOVEING THE O2 SAT BUT O2 SAT IS 955 AM NOD REPORTED TO ME , IV SITE INTACT AND PATENT , WITH FC -DRAINING A BIT CONCENTRATED U. O , ON SAFETY/ FALL PRECAUTION PROTOCOL- BED ALARM ON , CALL LIGHT WITHIN REACH , PLAN OF CARE DISCUSSED BUT POOR UNDERSTANDING DUE TO MENTAL STATUS , WILL CONT. TO MONITOR , ON FEEDER.
[2019-08-24 20:00] VITALS: BP 140/90
[2019-08-25] VITALS: BP 150/100
--- NOTE | 2019-08-25 | NUR ---
MADE ROUNDS , RR 20 - O2 SAT 95% - PT REFUSEDTO PUT BACK THE O2 INH. WILL CONT. TO MONITOR.
--- NOTE | 2019-08-25 02:00 | NUR ---
S/E BY RT - NO FURTHER INTERVENTION MADE.
[2019-08-25] MEDS: ALBUTEROL SULFATE/IPRATROPIU 3 ML SOL IH PRN (02:08)
[2019-08-25 04:00] VITALS: BP 130/70
--- NOTE | 2019-08-25 04:00 | NUR ---
MADE ROUNDS - NO SIGNS OF DISTRESS NOTED AT THIS TIME.
[2019-08-25 06:49] LABS: BASOPHILS % (AUTO) 0.3 % (0.0-2.0); EOSINOPHILS # (AUTO) 0.4 K/uL (0-0.4); EOSINOPHILS % (AUTO) 3.1 % (0.0-4.0); HEMATOCRIT 39.1 % (36-48); HEMOGLOBIN 12.4 g/dL (12.0-16.0); LYMPHOCYTES # (AUTO) 1.4 K/uL (2.5-16.5); MEAN CORPUSCULAR HEMOGLOBIN 29 pg (27-31); MEAN CORPUSCULAR HGB CONC 32 g/dL (33-37); MEAN CORPUSCULAR VOLUME 90.1 fL (80-94); MONOCYTES # (AUTO) 1.2 K/uL (0.8-1.0); MONOCYTES % (AUTO) 8.8 % (1.7-9.3); NEUTROPHILS % (AUTO) 76.8 % (42.2-75.2); PLATELET COUNT (AUTO) 283 K/uL (140-450); RED BLOOD CELL COUNT(AUTO) 4.34 MIL/uL (4.20-5.40); RED CELL DISTRIBUTION WIDTH 18.8 % (11.6-13.7)
[2019-08-25] MEDS: LEVOTHYROXINE 0.025 MG TAB PO SCH (06:52)
[2019-08-25] MEDS: ALBUTEROL SULFATE/IPRATROPIU 3 ML SOL IH SCH ×3 (06:59→19:12)
[2019-08-25 07:05] LABS: CARBON DIOXIDE 31.3 mmol/L (21-32); CHLORIDE 105 mmol/L (98-107); CREATININE 0.8 mg/dL (0.6-1.3); GLUCOSE 160 mg/dL (74-106); POTASSIUM 4.3 mmol/L (3.5-5.1); SODIUM SERUM 144 mmol/L (136-145); UREA NITROGEN, BLOOD 15 mg/dL (7-18)
--- NOTE | 2019-08-25 07:25 | NUR ---
ENDORSED TO AM SHIFT WITH STABLE CONDITION -SLEEPY BUT AWAKEABLE - MARY ALICE ON ROUNDS DURING ENDORSEMENT .
--- NOTE | 2019-08-25 07:26 | NUR ---
RECEIVED REPORT FROM REFRIGERATION SERVICE TECHNICIAN NURSE AT BEDSIDE FOR CONTINUITY OF CARE. PT AAOX1 , WITH HX OF DEMENTIA , AND SCHIZOPHRENIA. IV SITE INTACT AND PATENT, INFUSING IVF WELL. PATIENT HAS FC IN PLACE, DRAINING TO GRAVITY WITH DARK YELLOW URINE. RESPIRATIONS EVEN AND UNLABORED, NO SOB OR DISTRESS NOTED, O2 SAT 92% ON ROOM AIR. PATIENT DENIES PAIN. UPDATED BOARD. UPDATED PATIENT WITH PLAN OF CARE, REINFORCEMENT NEEDED. SAFETY PRECAUTIONS IN PLACE, BED IN LOWEST POSITION WITH ALARM AND BRAKES ON, CALL LIGHT WITHIN REACH, WILL CONTINUE TO MONITOR PATIENT.
[2019-08-25] MEDS: BLOOD GLUCOSE MONITORING 1 DEV DEV FS SCH ×4 (07:30→20:41)
[2019-08-25 08:00] VITALS: BP 130/60
[2019-08-25] MEDS ORDERED: NACL 0.9% 500 ML IV SCH (08:35)
--- NOTE | 2019-08-25 08:35 | NUR ---
INFORMED DR. FLORES ABOUT LACTIC ACID LEVEL OF 2.9. NEW ORDER IN FOR 500 ML OF NS BOLUS. ORDERED CARRIED OUT. PATIENT AWAKE AND EATING BREAKFAST. NO COMPLAINTS AT THIS TIME. WILL CONTINUE TO MONITOR PATIENT.
[2019-08-25] MEDS: DIGOXIN 0.125 MG TAB PO SCH (09:00)
[2019-08-25] MEDS: DOCUSATE SODIUM 250 MG GELCAP PO SCH ×2 (09:00→20:32)
[2019-08-25] MEDS: ATORVASTATIN 20 MG TAB PO SCH (09:00)
[2019-08-25] MEDS: levETIRAcetam 500 MG TAB PO SCH ×2 (09:00→20:32)
[2019-08-25] MEDS: metFORMIN 500 MG TAB PO SCH ×2 (09:00→17:21)
[2019-08-25] MEDS: CARVEDILOL 3.125 MG TAB PO SCH ×2 (09:01→20:33)
[2019-08-25] MEDS: RIVAROXABAN 15 MG TAB PO SCH (09:01)
[2019-08-25] MEDS: ENALAPRIL 5 MG TAB PO SCH (09:01)
[2019-08-25] MEDS: FUROSEMIDE 20 MG/2 ML VIAL IVP SCH (09:02)
--- NOTE | 2019-08-25 09:05 | NUR ---
ORDERED MEDICATIONS GIVEN. PATIENT TOLERATED THEM WELL. PATIENT SITTING UP IN BED EATING BREAKFAST. NO COMPLAINTS AT THIS TIME. SAFETY PRECAUTIONS IN PLACE, CALL LIGHT WITHIN REACH. WILL CONTINUE TO MONITOR PATIENT.
--- NOTE | 2019-08-25 10:00 | NUR ---
DC RN TANK TRUCK LOADER FOR [facility] CALLED TO INQUIRE ABOUT PATIENT'S STATUS. UPDATED HER ON PATIENT'S STATUS AND CONDITION, SHE PROVIDED RN WIT PATIENT'S BASELINE INFORMATION. SHE STATED SHE WILL CALL BACK TUESDAY TO SEE IF THERE ARE ANY UPDATES ON PATIENT'S CONDITION. RN VERBALIZED UNDERSTANDING. PATIENT CURRENTLY RESTING WITH EYES CLOSED, ALL NEEDS MET AT THIS TIME. CALL LIGHT WITHIN REACH, WILL CONTINUE TO MONITOR PATIENT.
[2019-08-25] MEDS: NACL 0.9% 1,000 ML IV SCH (11:26)
[2019-08-25 12:03] VITALS: BP 123/58
[2019-08-25] MEDS: guaiFENesin DM 200/20 MG-10 ML 10 ML UDC PO PRN (12:19)
[2019-08-25] MEDS: INSULIN LISPRO SLIDING SCALE 100 UNITS/ML VIAL SUBQ PRN ×2 (12:23→17:28)
--- NOTE | 2019-08-25 12:25 | NUR ---
PATIENT HAS INTERMITTENT COUGH. OFFERED GUAIFENESIN. PATIENT ACCEPTED. PRN GUAIFENESIN GIVEN. BLOOD SUGAR 177, COVERAGE GIVEN. PATIENT TOLERATED THEM WELL. PATIENT NOW SITTING UP. LUNCH SET UP FOR PATIENT. NO COMPLAINTS AT THIS TIME. SAFETY PRECAUTIONS IN PLACE, BED IN LOWEST POSITION WITH ALARM AND BRAKES ON, CALL LIGHT WITHIN REACH, WILL CONTINUE TO MONITOR PATIENT.
--- NOTE | 2019-08-25 14:20 | NUR ---
PATIENT SLEEPING IN BED COMFORTABLY, RESPIRATIONS EVEN AND UNLABORED ON ROOM AIR, ALL NEEDS MET, WILL CONTINUE TO MONITOR PATIENT.
[2019-08-25 16:00] VITALS: BP 123/65
--- NOTE | 2019-08-25 16:03 | NUR ---
ORDERED MEDICATION GIVEN. PATIENT RESTING IN BED COMFORTABLY, ALL NEEDS MET. WILL CONTINUE TO MONITOR PATIENT.
--- NOTE | 2019-08-25 16:25 | NUR ---
INFORM DR. FLORES ABOUT PATIENT'S URINE COLOR. DR. FLORES CAME TO ASSESS PATIENT.
--- NOTE | 2019-08-25 17:00 | NUR ---
RAIL CAR REPAIR CARMAN IN TO DO KIDNEY US FOR PATIENT. WILL WAIT FOR RESULTS.
--- NOTE | 2019-08-25 17:28 | NUR ---
BLOOD SUGAR 177, COVERAGE GIVEN. ORDERED MEDICATION GIVEN. PATIENT TOLERATED THEM WELL. NO COMPLAINTS AT THIS TIME. SAFETY PRECAUTIONS IN PLACE, BED IN LOWEST POSITION WITH ALARM AND BRAKES ON, CALL LIGHT WITHIN REACH, WILL CONTINUE TO MONITOR PATIENT.
--- NOTE | 2019-08-25 19:02 | NUR ---
REPORT GIVEN TO TRIM AND BURR OPERATOR NURSE AT BEDSIDE FOR CONTINUITY OF CARE. PATIENT IN STABLE CONDITION.
--- NOTE | 2019-08-25 19:03 | NUR ---
Received endorsement from AM shift RN; patient A/Ox1. Introduced self, updated board. No SOB or distress noted, on room air. IV site noted on right wrist, 22 gauge, running IVF at 40mL/hr. Solitario in place. Bed in the lowest position, call light within reach. Initial assessment done. Will continue to monitor.
[2019-08-25 20:00] VITALS: BP 154/92
[2019-08-25] MEDS ORDERED: CLINDAMYCIN 600 MG/4 ML VIAL ONE (20:21)
[2019-08-25] MEDS: CLINDAMYCIN 600 MG in DEXTROSE 5% 50 ML IV SCH (20:32)
--- NOTE | 2019-08-25 20:40 | NUR ---
Vitals taken, no SOB or distress noted.
--- NOTE | 2019-08-25 22:50 | NUR ---
Due meds given, tolerated well.
--- NOTE | 2019-08-25 23:53 | NUR ---
Vitals taken; patient noted with desaturation of 88%; head of the bed raised and patient placed on oxygen 2LPM via nasal cannula. RT made aware.
[2019-08-26] VITALS: BP 129/91
--- NOTE | 2019-08-26 00:35 | NUR ---
Oxygen saturation increased to 94% and maintained after oxygen administration and HOB raised. Will continue to monitor.
[2019-08-26] MEDS: guaiFENesin DM 200/20 MG-10 ML 10 ML UDC PO PRN (01:15)
--- NOTE | 2019-08-26 02:05 | NUR ---
Checks made; no distress noted.
[2019-08-26 04:00] VITALS: BP 151/90
[2019-08-26] MEDS ORDERED: CLINDAMYCIN 600 MG/4 ML VIAL ONE (04:01)
[2019-08-26] MEDS: CLINDAMYCIN 600 MG in DEXTROSE 5% 50 ML IV SCH (04:03)
--- NOTE | 2019-08-26 04:40 | NUR ---
Vitals taken, no distress noted.
[2019-08-26] MEDS: BLOOD GLUCOSE MONITORING 1 DEV DEV FS SCH ×4 (06:04→21:40)
[2019-08-26] MEDS: INSULIN LISPRO SLIDING SCALE 100 UNITS/ML VIAL SUBQ PRN ×2 (06:05→21:43)
[2019-08-26] MEDS: LEVOTHYROXINE 0.025 MG TAB PO SCH (06:07)
--- NOTE | 2019-08-26 06:20 | NUR ---
Vitals stable, due meds given. Will endorse to AM shift RN for continuity of care.
--- NOTE | 2019-08-26 07:20 | NUR ---
RECEIVED PT FROM NIGHT NURSE. PT SLEEPING, AROUSABLE TO SPEECH, AAO X1. PT UNDERSTANDS COMMANDS BUT APPEARS CONFUSED. ON O2 8L NC, RESPIRATIONS EVEN AND UNLABORED WITH EXPIRATORY WHEEZES. PT DENIES PAIN AND NO DISTRESS IS NOTED. SKIN INTACT. IV IN PLACE R WR 22G INFUSING PER ORDER. BED IN LOW POSITION. SAFETY MEASURES IN PLACE. CALL LIGHT WITHIN REACH. WILL CONTINUE TO MONITOR.
[2019-08-26] MEDS: ALBUTEROL SULFATE/IPRATROPIU 3 ML SOL IH SCH ×3 (07:35→20:14)
[2019-08-26 07:37] LABS: BASOPHILS # (AUTO) 0.1 K/uL (0.00-0.22); BASOPHILS % (AUTO) 0.4 % (0.0-2.0); EOSINOPHILS # (AUTO) 0.2 K/uL (0-0.4); EOSINOPHILS % (AUTO) 1.5 % (0.0-4.0); HEMATOCRIT 37.8 % (36-48); HEMOGLOBIN 11.9 g/dL (12.0-16.0); LYMPHOCYTES # (AUTO) 1.4 K/uL (2.5-16.5); LYMPHOCYTES % (AUTO) 10.2 % (20.5-51.1); MEAN CORPUSCULAR HEMOGLOBIN 28 pg (27-31); MEAN CORPUSCULAR HGB CONC 31 g/dL (33-37); MEAN CORPUSCULAR VOLUME 90.4 fL (80-94); MONOCYTES # (AUTO) 0.8 K/uL (0.8-1.0); MONOCYTES % (AUTO) 5.5 % (1.7-9.3); NEUTROPHILS # (AUTO) 11.6 K/uL (1.8-7.7); NEUTROPHILS % (AUTO) 82.4 % (42.2-75.2); PLATELET COUNT (AUTO) 260 K/uL (140-450); RED BLOOD CELL COUNT(AUTO) 4.19 MIL/uL (4.20-5.40); RED CELL DISTRIBUTION WIDTH 18.9 % (11.6-13.7); WHITE BLOOD COUNT (AUTO) 14.1 K/uL (4.8-10.8)
[2019-08-26 07:52] LABS: ANION GAP 12.7 (8-16); CARBON DIOXIDE 28.9 mmol/L (21-32); CHLORIDE 107 mmol/L (98-107); CREATININE 0.8 mg/dL (0.6-1.3); GLUCOSE 145 mg/dL (74-106); POTASSIUM 3.6 mmol/L (3.5-5.1); SODIUM SERUM 145 mmol/L (136-145); UREA NITROGEN, BLOOD 13 mg/dL (7-18)
[2019-08-26 08:00] VITALS: BP 130/73
[2019-08-26 08:18] LABS: MAGNESIUM 1.6 mg/dL (1.8-2.4); PHOSPHORUS 3.5 mg/dL (2.5-4.9)
[2019-08-26 08:21] LABS: PROTHROMBIN TIME 13.4 secs (10.8-13.4)
--- NOTE | 2019-08-26 08:49 | NUR ---
MEDICATIONS ADMINISTERED PER ORDER. PT TOLERATED WELL. NO DISTRESS NOTED. WILL CONTINUE TO MONITOR.
[2019-08-26] MEDS: DIGOXIN 0.125 MG TAB PO SCH (08:52)
[2019-08-26] MEDS: DOCUSATE SODIUM 250 MG GELCAP PO SCH ×2 (08:52→21:26)
[2019-08-26] MEDS: metFORMIN 500 MG TAB PO SCH ×2 (08:52→17:00)
[2019-08-26] MEDS: CARVEDILOL 3.125 MG TAB PO SCH ×2 (08:52→21:26)
[2019-08-26] MEDS: ENALAPRIL 5 MG TAB PO SCH (08:52)
[2019-08-26] MEDS: levETIRAcetam 500 MG TAB PO SCH ×2 (08:53→21:26)
[2019-08-26] MEDS: FUROSEMIDE 20 MG/2 ML VIAL IVP SCH (08:53)
[2019-08-26] MEDS: ATORVASTATIN 20 MG TAB PO SCH (09:04)
[2019-08-26] MEDS ORDERED: MAG SULF 2000 MG/WATER PREMIX 50 ML IV SCH (10:00)
--- NOTE | 2019-08-26 10:00 | NUR ---
PT TRANSPORTED OFF UNIT FOR CT ABD/PELVIS W/O CONTRAST.
--- NOTE | 2019-08-26 10:25 | NUR ---
PT RETURNS TO UNIT FROM CT SCAN. PT RECONNECTED TO IV INFUSING S PER ORDER AND 2L NC. WILL CONTINUE TO MONITOR.
[2019-08-26 12:00] VITALS: BP 116/60
[2019-08-26] MEDS: NACL 0.9% 1,000 ML IV SCH (12:49)
--- NOTE | 2019-08-26 13:08 | NUR ---
MEDICATIONS ADMINISTERED PER ORDER. PT TOLERATED WELL. NO DISTRESS NOTED. WILL CONTINUE TO MONITOR.
--- NOTE | 2019-08-26 13:23 | NUR ---
AWAKE AND ALERT NO PULMONARY DISTRESS NOTED GOOD CHEST RISE PATIENT WITH LUNCH TRAY AT THIS TIME NURSING CLERK TO ATTEMPT HHN THERAPY AND RESPIRATORY DRUG AT A LATER TIME
[2019-08-26] MEDS: PIPERACILLIN/TAZOBACTAM 2.25 GM in DEXTROSE 5% 50 ML IV SCH ×2 (13:36→17:05)
--- NOTE | 2019-08-26 14:15 | NUR ---
STRONG COUGH OROPHARYNGEAL SUCTION FOR MODERATE THIN YELLOW SECRETIONS
--- NOTE | 2019-08-26 15:00 | NUR ---
PATIENT LYING DOWN IN BED SLEEPING, AROUSABLE BY VOICE. NO DISTRESS NOTED. FLACC 0. WILL CONTINUE TO MONITOR.
[2019-08-26 16:00] VITALS: BP 108/55
--- NOTE | 2019-08-26 16:42 | NUR ---
MEDICATIONS ADMINISTERED PER ORDER. VITAL SIGNS TAKEN. BLOOD GLUCOSE MONITORED. PT IN NO DISTRESS. WILL CONTINUE TO MONITOR.
--- NOTE | 2019-08-26 17:00 | NUR ---
ASSISTED CONTINUITY READER IN CLEANING AND REPOSITIONING PATIENT. WILL CONTINUE TO MONITOR.
--- NOTE | 2019-08-26 18:00 | NUR ---
PATIENT WITH DINNER TRAY IN FRONT. NO DISTRESS NOTED. CONDITION UNCHANGED. WILL CONTINUE TO MONITOR.
--- NOTE | 2019-08-26 19:12 | NUR ---
PT HANDED OFF TO NIGHT NURSE IN STABLE CONDITION FOR CONTINUITY OF CARE.
[2019-08-26 20:00] VITALS: BP 125/71
--- NOTE | 2019-08-26 20:00 | NUR ---
ASSUMED CARE. RECEIVED ALERT,CONFUSED,VERBALLY RESPONSIVE. AFEBRILE, NOT IN ACUTE DISTRESS. NO PAIN OR DISCOMFORT NOTED. IV FLUID NS AT 10 ML/HR VIA LEFT HAND #22 IV LINE. VICK CATHETER DRAINING YELLOW,HAZY URINE. A.FIB/FLUTTER AT 80'S ON THE MONITOR. VS STABLE, WILL CONTINUE TO MONITOR. NEEDS ATTENDED.
--- NOTE | 2019-08-26 21:26 | NUR ---
DUE MEDICATIONS GIVEN.
--- NOTE | 2019-08-26 21:43 | NUR ---
FINGERSTICK BLOOD SUGAR [id number]. 2 UNITS OF HUMALOG SQ GIVEN PER SLIDING SCALE.
[2019-08-27] VITALS: BP 153/82
--- NOTE | 2019-08-27 | NUR ---
AWAKE,NOT IN ANY KIND OF DISTRESS. NO PAIN OR DISCOMFORT NOTED. SIDE RAILS UP,CALL LIGHT WITHIN REACH. KEPT WARM AND COMFORTABLE. VS REMAIN STABLE.
[2019-08-27 04:00] VITALS: BP 151/81
--- NOTE | 2019-08-27 04:00 | NUR ---
PT.ASLEEP. SAO2=93% WHILE SLEEPING DUE TO MOUTH BREATHING. PT.PLACED BACK ON O2 @ 2 LPM VIA NC. IMPROVED TO 94%.
[2019-08-27] MEDS: LEVOTHYROXINE 0.025 MG TAB PO SCH (06:37)
[2019-08-27] MEDS: PIPERACILLIN/TAZOBACTAM 2.25 GM in DEXTROSE 5% 50 ML IV SCH ×3 (06:37)
[2019-08-27] MEDS: BLOOD GLUCOSE MONITORING 1 DEV DEV FS SCH ×4 (06:51→21:44)
--- NOTE | 2019-08-27 06:51 | NUR ---
[id number]. NO INSULIN COVERAGE NEEDED.
[2019-08-27 07:19] LABS: BASOPHILS # (AUTO) 0.1 K/uL (0.00-0.22); BASOPHILS % (AUTO) 0.5 % (0.0-2.0); EOSINOPHILS # (AUTO) 0.5 K/uL (0-0.4); EOSINOPHILS % (AUTO) 3.7 % (0.0-4.0); HEMATOCRIT 37.3 % (36-48); HEMOGLOBIN 11.7 g/dL (12.0-16.0); LYMPHOCYTES # (AUTO) 2.1 K/uL (2.5-16.5); LYMPHOCYTES % (AUTO) 14.5 % (20.5-51.1); MEAN CORPUSCULAR HEMOGLOBIN 29 pg (27-31); MEAN CORPUSCULAR HGB CONC 32 g/dL (33-37); MEAN CORPUSCULAR VOLUME 90.4 fL (80-94); MONOCYTES % (AUTO) 7.1 % (1.7-9.3); NEUTROPHILS # (AUTO) 10.9 K/uL (1.8-7.7); NEUTROPHILS % (AUTO) 74.2 % (42.2-75.2); PLATELET COUNT (AUTO) 277 K/uL (140-450); RED BLOOD CELL COUNT(AUTO) 4.12 MIL/uL (4.20-5.40); RED CELL DISTRIBUTION WIDTH 19.1 % (11.6-13.7); WHITE BLOOD COUNT (AUTO) 14.7 K/uL (4.8-10.8)
--- NOTE | 2019-08-27 07:25 | NUR ---
OBTAINED BEDSIDE REPORT FROM PERSONAL CLOTHING LAUNDRY AIDE NURSE HOOD. PT IS AWAKE BUT IS NOT ALERT AND ORIENTED, IS RESPONSIVE AND SMILING, BUT UNABLE TO UNDERSTAND WHAT SHE IS SAYING. NO S/S OF ACUTE DISTRESS OR SOB NOTED. PT IS CURRENTLY ON ROOM AIR, ALTHOUGH HAS 2L O2 NC PRN. IV SITE NOTED IN THE L HAND 22 G, INFUSING NS 10 ML/HR. SKIN IS INTACT. VICK CATHETER IN PLACE. FALL PRECAUTIONS IN PLACE, CALL LIGHT WITHIN REACH.
[2019-08-27 07:30] LABS: ANION GAP 11.6 (8-16); CARBON DIOXIDE 29.1 mmol/L (21-32); CHLORIDE 108 mmol/L (98-107); CREATININE 0.7 mg/dL (0.6-1.3); GLUCOSE 138 mg/dL (74-106); POTASSIUM 3.7 mmol/L (3.5-5.1); SODIUM SERUM 145 mmol/L (136-145); UREA NITROGEN, BLOOD 14 mg/dL (7-18)
--- NOTE | 2019-08-27 07:30 | NUR ---
ENDORSED CARE TO RADHA ALICEA.
[2019-08-27] MEDS: ALBUTEROL SULFATE/IPRATROPIU 3 ML SOL IH SCH ×3 (07:32→19:54)
[2019-08-27 08:00] VITALS: BP 158/69
[2019-08-27] MEDS: CARVEDILOL 3.125 MG TAB PO SCH ×2 (10:03→21:34)
[2019-08-27] MEDS: metFORMIN 500 MG TAB PO SCH ×2 (10:03→17:47)
[2019-08-27] MEDS: DOCUSATE SODIUM 250 MG GELCAP PO SCH ×2 (10:03→21:33)
[2019-08-27] MEDS: ATORVASTATIN 20 MG TAB PO SCH (10:04)
[2019-08-27] MEDS: DIGOXIN 0.125 MG TAB PO SCH (10:04)
[2019-08-27] MEDS: ENALAPRIL 5 MG TAB PO SCH (10:04)
[2019-08-27] MEDS: levETIRAcetam 500 MG TAB PO SCH ×2 (10:04→21:34)
[2019-08-27] MEDS: FUROSEMIDE 20 MG/2 ML VIAL IVP SCH (10:05)
--- NOTE | 2019-08-27 10:17 | NUR ---
ORDERED AM MEDS ADMINISTERED, PT TOLERATED WELL MEDS CRUSHED WITH APPLE SAUCE.
[2019-08-27 12:00] VITALS: BP 145/92
[2019-08-27] MEDS: NACL 0.9% 1,000 ML IV SCH (13:02)
[2019-08-27] MEDS: PIPERACILLIN/TAZOBACTAM 3.375 GM in DEXTROSE 5% 50 ML IV SCH ×2 (13:07→21:33)
--- NOTE | 2019-08-27 13:11 | NUR ---
PT SEEN BY DR COBIAN, HE VERBAL ORDERED AN ABG DRAW. ABD ORDERED.
--- NOTE | 2019-08-27 13:46 | NUR ---
SATURATION 91% ON ROOM AIR (+REFERENCE ABG) POST HHN THERAPY PLACED BACK ON SUPPLEMENTAL OXYGEN AT 2 LPM VIA BHARAT GARCIA/DEANNE NOTIFIED
--- NOTE | 2019-08-27 15:23 | NUR ---
PT CLEANED, TURNED, AND REPOSITIONED. TOLERATED WELL.
[2019-08-27 16:00] VITALS: BP 116/55
--- NOTE | 2019-08-27 18:02 | NUR ---
PT HAD A LARGE BM.
--- NOTE | 2019-08-27 19:30 | NUR ---
PT ENDORSED TO GRADUATE STUDENT INSTRUCTOR IN STABLE CONDITION
[2019-08-27 20:00] VITALS: BP 144/87
--- NOTE | 2019-08-27 20:00 | NUR ---
ASSUMED CARE. RECEIVED ASLEEP, NOT IN ANY KIND OF DISTRESS. NO PAIN OR DISCOMFORT NOTED AT THIS TIME. IV FLUID NS INFUSING AT 30 ML/HR VIA LEFT HAND #22 IV LINE. SAO2=96% ON ROOM AIR. A.FIB AT 70'S/MINUTE ON THE MONITOR. VICK DRAINING YELLOW,HAZY URINE. VS STABLE, WILL CONTINUE TO MONITOR. NEEDS ATTENDED.
--- NOTE | 2019-08-27 21:34 | NUR ---
DUE MEDICATIONS GIVEN.
--- NOTE | 2019-08-27 21:44 | NUR ---
FINGERSTICK BLOOD SUGAR [id number]. NO INSULIN COVERAGE NEEDED.
[2019-08-28] VITALS: BP 127/61
--- NOTE | 2019-08-28 | NUR ---
AWAKE, NOT IN ANY KIND OF DISTRESS. PULLED OUT IV LINE. WILL ESTABLISH A NEW IV LINE. OTHERWISE PT.REMAINS STABLE AND PAIN FREE. SIDE RAILS UP,CALL LIGHT WITHIN REACH. KEPT WARM AND COMFORTABLE.
--- NOTE | 2019-08-28 00:15 | NUR ---
GAUGE 22 IV LINE ESTABLISHED TO THE RIGHT WRIST. IV FLUIDS RESTARTED.
[2019-08-28 04:00] VITALS: BP 151/84
--- NOTE | 2019-08-28 04:00 | NUR ---
ASLEEP, NO SIGNIFICANT CHANGE IN CONDITION. PT.REMAINS STABLE AND PAIN FREE.
[2019-08-28] MEDS: PIPERACILLIN/TAZOBACTAM 3.375 GM in DEXTROSE 5% 50 ML IV SCH ×3 (05:01→20:51)
[2019-08-28] MEDS: LEVOTHYROXINE 0.025 MG TAB PO SCH (06:09)
[2019-08-28] MEDS: BLOOD GLUCOSE MONITORING 1 DEV DEV FS SCH ×4 (06:25→21:06)
--- NOTE | 2019-08-28 06:25 | NUR ---
FINGERSTICK BLOOD SUGAR [id number]. NO INSULIN COVERAGE NEEDED.
[2019-08-28 06:42] LABS: ANION GAP 9.7 (8-16); CARBON DIOXIDE 32.7 mmol/L (21-32); CHLORIDE 109 mmol/L (98-107); CREATININE 0.8 mg/dL (0.6-1.3); GLUCOSE 139 mg/dL (74-106); POTASSIUM 3.4 mmol/L (3.5-5.1); SODIUM SERUM 148 mmol/L (136-145); UREA NITROGEN, BLOOD 14 mg/dL (7-18)
[2019-08-28 06:44] LABS: BASOPHILS # (AUTO) 0.1 K/uL (0.00-0.22); BASOPHILS % (AUTO) 0.4 % (0.0-2.0); EOSINOPHILS # (AUTO) 0.5 K/uL (0-0.4); EOSINOPHILS % (AUTO) 3.5 % (0.0-4.0); HEMATOCRIT 38.1 % (36-48); HEMOGLOBIN 11.9 g/dL (12.0-16.0); LYMPHOCYTES # (AUTO) 1.7 K/uL (2.5-16.5); MEAN CORPUSCULAR HEMOGLOBIN 28 pg (27-31); MEAN CORPUSCULAR HGB CONC 31 g/dL (33-37); MEAN CORPUSCULAR VOLUME 90.7 fL (80-94); MONOCYTES % (AUTO) 7.3 % (1.7-9.3); NEUTROPHILS # (AUTO) 11.1 K/uL (1.8-7.7); NEUTROPHILS % (AUTO) 76.8 % (42.2-75.2); PLATELET COUNT (AUTO) 294 K/uL (140-450); RED CELL DISTRIBUTION WIDTH 18.8 % (11.6-13.7); WHITE BLOOD COUNT (AUTO) 14.4 K/uL (4.8-10.8)
[2019-08-28] MEDS: ALBUTEROL SULFATE/IPRATROPIU 3 ML SOL IH SCH ×3 (06:47→20:57)
--- NOTE | 2019-08-28 07:04 | NUR ---
ENDORSED CARE TO SUMAN RODRIGUEZ.
--- NOTE | 2019-08-28 07:30 | NUR ---
received report from pm nurse. PT AWAKE, ALERT BUT CONFUSED. UNABLE TO ANSWER QUESTIONS CORRECTLY, ONLY ABLE TO REPEAT WHAT I ASKED HER. PT ON RA, NO S/S OF RESPIRATORY DISTRESS NOTED. PT HAS IV TO RIGHT WRIST # 22 WRAPPED WITH FRANCIE RUNNING 0.9 NS AT 30 CC/HR. PT ALSO HAS F/C IN PLACE DRAINED CLOUDY YELLOW URINE NOTED. BED ALARM ON. NO FEVER. FALL RISKS IN PLACE, WILL CONTINUE TO MONITOR.
[2019-08-28 08:00] VITALS: BP 160/103
[2019-08-28] MEDS: DOCUSATE SODIUM 250 MG GELCAP PO SCH ×2 (08:15→20:52)
[2019-08-28] MEDS: DIGOXIN 0.125 MG TAB PO SCH (08:16)
[2019-08-28] MEDS: levETIRAcetam 500 MG TAB PO SCH ×2 (08:16→20:52)
[2019-08-28] MEDS: CARVEDILOL 3.125 MG TAB PO SCH ×2 (08:17→20:52)
[2019-08-28] MEDS: guaiFENesin 600 MG TABER PO SCH ×2 (08:17→20:53)
[2019-08-28] MEDS: ENALAPRIL 5 MG TAB PO SCH (08:17)
[2019-08-28] MEDS: metFORMIN 500 MG TAB PO SCH ×2 (08:17→16:45)
[2019-08-28] MEDS: FUROSEMIDE 20 MG/2 ML VIAL IVP SCH (08:18)
[2019-08-28] MEDS: ATORVASTATIN 20 MG TAB PO SCH (08:18)
--- NOTE | 2019-08-28 09:00 | NUR ---
ASSOCIATE PROGRAMMER ANALYST AT BEDSIDE TO FEE PT. DUE MEDS GIVEN. TOLERATED WELL.
--- NOTE | 2019-08-28 09:33 | NUR ---
CONTACTED HIMANSHU ([place] LOCATION MANAGER) OF [facility] AT [phone], SHE STATED THAT DR. JANIA CASTILLO IS THEIR NEW PHYSICIAN STARTING AUG 21, 2019 THAT VISITS THE CLINIC EVERY 60 DAYS AND PRN AND THEY ALSO HAVE AN MORTGAGE CONSULTANT.
[2019-08-28] MEDS ORDERED: NACL 0.9% 500 ML IV SCH ×2 (10:45→15:25)
[2019-08-28] MEDS ORDERED: POTASSIUM CHLORIDE 8 MEQ TABER PO SCH (10:50)
[2019-08-28] MEDS ORDERED: POTA8TER12 PO (10:53)
[2019-08-28] MEDS ORDERED: CARV3.122 PO (10:53)
[2019-08-28] MEDS ORDERED: XAR10 PO (10:54)
[2019-08-28] MEDS ORDERED: FURO-570 PO (10:54)
[2019-08-28] MEDS ORDERED: AZIT250T3 PO (10:57)
--- NOTE | 2019-08-28 11:06 | NUR ---
RECEIVED PHONE CALL FROM DC ( RN FROM [facility]). UPDATED PT'S INFORMATION. DC REQUESTED REPEAT LACTIC ACID LEVEL. DC ([phone])STATED SHE IS THE ONE TO CONTACT FOR DISCHARGE. NOTIFIED DR. FLORES.
--- NOTE | 2019-08-28 11:29 | NUR ---
08/28/19 RD INITIAL ASSESSMENT COMPLETED PLEASE REFER TO NUTRITION ASSESSMENT UNDER CARE ACTIVITY FOR ESTIMATED NUTRITIONAL NEEDS. 1. CONTINUE CARDIAC MECHANICAL SOFT DIET TOLERATED 2. RECOMMEND GLUCERNA BID 3. RECOMMEND CCHO 60GM WITH PO INTAKE >50% 4. RD TO FOLLOW-UP 3-5 DAYS, MODERATE RISK NEIL MCBRIDE, RD
[2019-08-28 12:00] VITALS: BP 124/60
[2019-08-28] MEDS: NACL 0.9% 1,000 ML IV SCH (12:49)
[2019-08-28] MEDS ORDERED: AMOX-999 PO (13:22)
--- NOTE | 2019-08-28 15:01 | NUR ---
CALLED DC ( RN FROM [facility]) FOR REPORT. SHE WILL ARRANGE FOR TRANSPORTATION . PER DC SHE WANTS PT GOT FLU SHOT IN OUR FACILITY. NOTIFIED DR. FLORES FOR ORDER.
[2019-08-28] MEDS ORDERED: INFLUENZA VACCINE QUAD 0.5 ML SYR IM PRN (15:05)
--- NOTE | 2019-08-28 15:37 | NUR ---
PT SLEEPING BUT EASILY AWAKING WITH VERBAL STIMULI. NO S/S OF RESPIRATORY DISTRESS NOTED.
[2019-08-28 16:00] VITALS: BP 143/96
--- NOTE | 2019-08-28 17:00 | NUR ---
DR. FLORES STATED HOLD D/C ORDER UNTIL TOMORROW.
--- NOTE | 2019-08-28 17:45 | NUR ---
PT EATING DINNER AT THIS TIME.
--- NOTE | 2019-08-28 19:30 | NUR ---
RECEIVED BEDSIDE REPORT FROM AM SHIFT RN SUMAN, FOR PT'S CONTINUITY OF CARE. PT IS AWAKE, LYING DOWN, WITH NO SIGNS OF DISTRESS. PT IS ON ROOM AIR, HAS RIGHT WRIST 22G IV INFUSING WITH NS AT 50ML/HR, VICK CATHETER IN PLACE. FALL PRECAUTION IN PLACE. BED IS ON LOW POSITION, SIDE RAILS ARE UP, AND CALL LIGHT IS WITHIN REACH. WILL MONITOR PT THROUGHOUT SHIFT.
--- NOTE | 2019-08-28 20:52 | NUR ---
ADMINISTERED SCHEDULED PO AND IV ABX ORDERED. ADMINISTERED PO MEDICATIONS WITH APPLESAUCE AND PT TOLERATED THEM WELL.
--- NOTE | 2019-08-28 22:15 | NUR ---
MADE ROUNDS. PT LYING DOWN ASLEEP WITH NO SIGNS OF DISTRESS. WILL CONTINUE TO MONITOR PT.
[2019-08-29] VITALS: BP 121/61
--- NOTE | 2019-08-29 00:15 | NUR ---
VS CHECKED AND CHARTED. PT LYING DOWN ASLEEP WITH NO SIGNS OF DISTRESS. WILL CONTINUE TO MONITOR PT.
--- NOTE | 2019-08-29 02:30 | NUR ---
MADE ROUNDS. PT LYING DOWN ASLEEP, WITH NO SIGNS OF DISTRESS. WILL CONTINUE TO MONITOR PT.
[2019-08-29] MEDS: PIPERACILLIN/TAZOBACTAM 3.375 GM in DEXTROSE 5% 50 ML IV SCH ×2 (04:08→13:00)
--- NOTE | 2019-08-29 04:30 | NUR ---
MADE ROUNDS. PT LYING DOWN ASLEEP WITH NO SIGNS OF DISTRESS.
[2019-08-29] MEDS ORDERED: ALENDRONATE SODIUM 70 MG TAB PO SCH (06:00)
--- NOTE | 2019-08-29 06:20 | NUR ---
PT PULLED OUT IV. PT NOT IN DISTRESS AT THIS TIME.
[2019-08-29] MEDS: ALBUTEROL SULFATE/IPRATROPIU 3 ML SOL IH SCH ×2 (06:29→13:28)
--- NOTE | 2019-08-29 06:29 | NUR ---
ADMINISTERED SCHEDULED PO MEDICATION WITH APPLESAUCE. PT TOLERATED IT WELL. PT HAS NO IV SITE AT THIS TIME. WILL ENDORSE TO AM SHIFT RN FOR PT'S CONTINUITY OF CARE.
[2019-08-29] MEDS: LEVOTHYROXINE 0.025 MG TAB PO SCH (06:43)
[2019-08-29 06:47] LABS: BASOPHILS # (AUTO) 0.1 K/uL (0.00-0.22); BASOPHILS % (AUTO) 0.5 % (0.0-2.0); EOSINOPHILS # (AUTO) 0.5 K/uL (0-0.4); EOSINOPHILS % (AUTO) 4.8 % (0.0-4.0); HEMATOCRIT 36.2 % (36-48); HEMOGLOBIN 11.4 g/dL (12.0-16.0); LYMPHOCYTES # (AUTO) 1.9 K/uL (2.5-16.5); LYMPHOCYTES % (AUTO) 16.7 % (20.5-51.1); MEAN CORPUSCULAR HEMOGLOBIN 28 pg (27-31); MEAN CORPUSCULAR HGB CONC 31 g/dL (33-37); MEAN CORPUSCULAR VOLUME 90.1 fL (80-94); MONOCYTES # (AUTO) 0.8 K/uL (0.8-1.0); MONOCYTES % (AUTO) 7.4 % (1.7-9.3); NEUTROPHILS % (AUTO) 70.6 % (42.2-75.2); PLATELET COUNT (AUTO) 289 K/uL (140-450); RED BLOOD CELL COUNT(AUTO) 4.02 MIL/uL (4.20-5.40); RED CELL DISTRIBUTION WIDTH 18.9 % (11.6-13.7); WHITE BLOOD COUNT (AUTO) 11.3 K/uL (4.8-10.8)
[2019-08-29] MEDS: BLOOD GLUCOSE MONITORING 1 DEV DEV FS SCH ×3 (06:47→16:32)
--- NOTE | 2019-08-29 07:41 | NUR ---
RECEIVED BEDSIDE REPORT FROM SALES AND BUSINESS DEVELOPMENT MANAGER RN FOR PT'S CONTINUITY OF CARE. PT IS AAOX1, CONFUSED BUT ALERT TO NAME ONLY. PT IS AWAKE, LYING DOWN, WITH NO SIGNS OF DISTRESS. PT IS ON ROOM AIR, HAS NO IV ACCESS. VICK CATHETER IN PLACE. FALL PRECAUTION IN PLACE. BED IS ON LOW POSITION, SIDE RAILS ARE UP, AND CALL LIGHT IS WITHIN REACH. WILL MONITOR PT THROUGHOUT SHIFT.
[2019-08-29 07:45] LABS: CARBON DIOXIDE 28.2 mmol/L (21-32); CHLORIDE 110 mmol/L (98-107); GLUCOSE 134 mg/dL (74-106); POTASSIUM 3.2 mmol/L (3.5-5.1); SODIUM SERUM 150 mmol/L (136-145)
[2019-08-29 07:46] LABS: CREATININE 0.8 mg/dL (0.6-1.3); UREA NITROGEN, BLOOD 13 mg/dL (7-18)
[2019-08-29 08:20] VITALS: BP 119/77
[2019-08-29] MEDS ORDERED: POTASSIUM CHLORIDE 10 MEQ TABER PO SCH (09:00)
[2019-08-29] MEDS: FUROSEMIDE 20 MG/2 ML VIAL IVP SCH (09:00)
[2019-08-29] MEDS ORDERED: POTASSIUM CHLORIDE 8 MEQ TABER PO SCH (09:00)
--- NOTE | 2019-08-29 10:14 | NUR ---
ADMINISTERED MORNING MEDS TO PT. USED APPLE SAUCE TO GIVE MEDS. PT TOLERATED THEM WELL. ALL NEEDS MET. WILL CONTINUE TO ROUND FREQUENTLY ON PT. BED IN LOW POSITION, CALL LIGHT WITHIN REACH.
[2019-08-29] MEDS: metFORMIN 500 MG TAB PO SCH ×2 (10:18→16:39)
[2019-08-29] MEDS: ATORVASTATIN 20 MG TAB PO SCH (10:18)
[2019-08-29] MEDS: DOCUSATE SODIUM 250 MG GELCAP PO SCH (10:18)
[2019-08-29] MEDS: guaiFENesin 600 MG TABER PO SCH (10:18)
[2019-08-29] MEDS: DIGOXIN 0.125 MG TAB PO SCH (10:18)
[2019-08-29] MEDS: levETIRAcetam 500 MG TAB PO SCH (10:19)
[2019-08-29] MEDS: CARVEDILOL 3.125 MG TAB PO SCH (10:19)
[2019-08-29] MEDS: ENALAPRIL 5 MG TAB PO SCH (10:19)
[2019-08-29] MEDS: NACL 0.9% 1,000 ML IV SCH (10:20)
--- NOTE | 2019-08-29 11:47 | NUR ---
PT SLEEPING IN BED. ALL NEEDS MET. WILL CONTINUE TO ROUND FREQUENTLY ON PT.
--- NOTE | 2019-08-29 13:43 | NUR ---
Balance Truing Inspector Note: Per DEANNE Mosley from [facility] , their protocol is to schedule patients follow up appointments with their pcp one week after post discharge. She stated she will schedule patient's follow up appointment with pcp.
--- NOTE | 2019-08-29 13:59 | NUR ---
PT RESTING IN BED. ALL NEEDS MET. WILL ROUND FREQUENTLY ON PT.
--- NOTE | 2019-08-29 15:49 | NUR ---
PT SLEEPING. NO SIGNS OF DISTRESS OR PAIN NOTED. WILL CONTINUE TO ROUND FREQUENTLY ON PT. BED IN LOW POSITION, CALL LIGHT WITHIN REACH.
[2019-08-29 16:00] VITALS: BP 138/71
--- NOTE | 2019-08-29 17:54 | NUR ---
PT SITTING IN BED HAVING DINNER. ALL NEEDS MET. WILL BE DISCHARGE DAFTER DINNER.
--- NOTE | 2019-08-29 18:20 | NUR ---
PT DISCHARGED BACK TO [facility]. PT DISCHARGE GIVEN TO CAREGIVER FROM HOME. EXPLAINED THAT PT NEEDS TO HAVE FOLLOW-UP APPT MADE WITH PCP WITHIN 5-7 DAYS AFTER D/C. FLU SHOT ALSO GIVEN. ALSO INSTRUCTED ON IMPORTANCE OF MED CONTINUATION AND TO FINISH ALL ABX THERAPY. CAREGIVER VERBALIZED UNDERSTANDING. IV WAS REMOVED WITH TIP INTACT. WRISTBAND REMOVED AND PLACED IN SHRED BIN. ALL PERSONAL BELONGINGS TAKE NWITH PT. PT LEFT IN STABLE CONDITION.
== END 2019-08-29 18:25 | disposition home or self-care (01) | DRG 291 ==
LOC: MED 11:54 → MTU 14:06
PROVIDERS: ADMIT General Practice; ATTEND General Practice
DX: I11.0 Hypertensive heart disease with heart failure (principal); J96.01 Acute respiratory failure with hypoxia; J18.9 Pneumonia, unspecified organism; N39.0 Urinary tract infection, site not specified; D68.9 Coagulation defect, unspecified; I50.43 Acute on chronic combined systolic (congestive) and diastolic (congestive) heart failure; I42.9 Cardiomyopathy, unspecified; J40 Bronchitis, not specified as acute or chronic; E03.9 Hypothyroidism, unspecified; E11.9 Type 2 diabetes mellitus without complications; E78.5 Hyperlipidemia, unspecified; F79 Unspecified intellectual disabilities; G40.909 Epilepsy, unspecified, not intractable, without status epilepticus; G93.89 Other specified disorders of brain; I25.10 Atherosclerotic heart disease of native coronary artery without angina pectoris; I48.91 Unspecified atrial fibrillation; K57.90 Diverticulosis of intestine, part unspecified, without perforation or abscess without bleeding; K80.20 Calculus of gallbladder without cholecystitis without obstruction; R13.10 Dysphagia, unspecified; F20.9 Schizophrenia, unspecified; M85.80 Other specified disorders of bone density and structure, unspecified site; F03.90 Unspecified dementia, unspecified severity, without behavioral disturbance, psychotic disturbance, mood disturbance, and anxiety; K21.9 Gastro-esophageal reflux disease without esophagitis; E83.42 Hypomagnesemia; M81.0 Age-related osteoporosis without current pathological fracture; D72.829 Elevated white blood cell count, unspecified; R31.9 Hematuria, unspecified; T45.515A Adverse effect of anticoagulants, initial encounter; Y92.89 Other specified places as the place of occurrence of the external cause; Z79.01 Long term (current) use of anticoagulants
CPT/HCPCS: 36415; 36600; 71045; 76770; 80048; 80053; 80162; 81001; 82803; 82948; 83036; 83605; 83735; 83880; 84100; 84439; 84443; 85025; 85610; 85730; 87040; 87081; 87086; 92610; 93005; 94640; 97110; 97116; 97161-GP; 97530; 99285; C1758; J0696; J1630; J1815; J1940; J2543; J3475; J3490; J7030; J7060; J7620; Q0092